=== PATIENT | female | born 1940 | race Caucasian/White ===

== ENCOUNTER 2017-05-23 09:19 | Inpatient (IN) ==
[2017-05-23] MEDS ORDERED: ACETAMINOPHEN 325 MG TABLET PO PRN (09:23)
[2017-05-23 10:23] LABS: Basophils % 0.2 % (0.0-0.8); Eosinophils % 0.2 % (0.00-10.9); Hematocrit 41.5 VOL% (35.7-47.0); Hemoglobin 13.9 GM/DL (12.0-16.0); Immature Granulocytes % 0.6 %; Lymphocytes # 1.4 10*3/uL (1.4-4.0); Lymphocytes % 8.9 % (21.3-54.2); Mean Corpuscular HGB Conc 33.5 GM/DL (32-36); Mean Corpuscular Hemoglobin 32 PG (27-34); Mean Corpuscular Volume 94.3 FL (87-102); Mean Platelet Volume 9.6 FL (9.6-12.0); Monocytes # 0.9 10*3/uL (0.11-0.8); Monocytes % 5.8 % (1.7-12.7); Neutrophils # 13.6 10*3/uL (1.4-7.4); Neutrophils % 84.3 % (38.7-73.9); Platelet Count 380 T/CUMM (130-400); Red Cell Distribution Width 12.6 % (9.3-17.3); White Blood Count 16.2 T/CUMM (4-12)
--- NOTE | 2017-05-23 10:25 | EKG Report ---
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
[2017-05-23 10:58] LABS: Risk Ratio 2.34; VLDL CHOLESTEROL 15.8 MG/DL
[2017-05-23 11:02] LABS: Albumin 3.4 G/DL (3.4-5.0); Bilirubin,Total 0.5 MG/DL (0.2-1.0); Calcium 8.7 MG/DL (8.5-10.1); Potassium 4.1 MMOL/L (3.5-5.1); Total Protein 6.6 G/DL (6.4-8.3)
[2017-05-23] MEDS: ALBUTEROL/IPRATROPIUM 3 ML NEB RESP TX SCH ×3 (11:29→19:17)
[2017-05-23] MEDS ORDERED: IPRATROPIUM/ALBUTEROL INHALER INH SCH (13:00)
--- NOTE | 2017-05-23 13:18 | Gastrointestinal Consult Note ---
Assessment and Plan (1) Weight loss Status: Acute Assessment and plan: 05/23-10 pound weight loss over the last year with decreased appetite. Prior endoscopy as below however unable to locate records at this time. No associated complaints other than sporadic episodes of nausea and vomiting. Consider EGD tomorrow to further evaluate. Plan and addendum to follow by Dr Everett. Current Visit: Yes History of Present Illness Chief complaint: Weight loss History of present illness: Ms. Cassidy is a 76 year old female who was admitted to the hospital with weight loss. Pt is a fairly good historian however unable to access prior facility database for historical information. Pt was admitted to the hospital today after being seen in clinic by Dr Granda for weight loss. Pt states that over the last year she began losing weight. She states that approximately a year ago , she began to have a decrease in her appetite. She states that she cannot recall any events that occurred prior to this however it was gradual decrease. She states that she has lost approximately 10 pounds over this period of time. She does recall having some sporadic episodes of nausea and vomiting but states they occur randomly and no precipitating factors that she can recall. She has had no complaints of abdominal pain. She has no complaints of fever, chills or night sweats. She states that she has had EGD fairly recently with esophageal stricture and dilation. Her last colonscope was in the last 5 years per patient with no acute findings. Denies a family history of colon cancer. Denies any melena or hematochezia. She has been placed on Megace in the recent past with no results from this. She also has chronic pain issues and is followed by Dr More for this. She has no complaints of dysphagia, GERD or dyspepsia. She has had no changes in her bowel pattern other than some constipation from not eating well. She does have a history of COPD as well. Home Medications Medication Instructions Recorded Confirmed Type Albuterol Sulfate [Proair HFA] 2 puff INH Q4H PRN 01/13/17 05/23/17 History Albuterol/Ipratropium Neb [Duoneb] 3 ml RESP TX QID 01/13/17 05/23/17 History Budesonide/Formoterol 160-4.5 2 puff INH BID 01/13/17 05/23/17 History [Symbicort 160-4.5] HYDROcodone/ACETAMIN 5-325 [[place] 1 tablet PO BID PRN 01/13/17 05/23/17 History 5-325] Ipratropium/Albuterol Inhaler 1 puff INH QID 01/13/17 05/23/17 History [Combivent Respimat Inhaler] Megestrol Liquid [Megace Liquid] 5 ml PO BID 01/13/17 05/23/17 History Metoprolol Tartrate 12.5 mg PO BID 01/13/17 05/23/17 History traMADol TAB [Ultram] 100 mg PO BID 01/13/17 05/23/17 History predniSONE TAB [PredniSONE] 5 mg PO DAILY 05/07/17 05/23/17 History Allergies Allergy/AdvReac Type Severity Reaction Status Date / Time aspirin Allergy Severe Swelling Verified 05/07/17 09:00 of Lip/Tongue/Throat morphine AdvReac Nausea Verified 05/07/17 09:00 Medical,Surgical,& Family Hx - Medical History Respiratory: History of: COPD Musculoskeletal: History of: Back/Neck Problems (back pain), Musculoskeletal Problems (arthritis) - Surgical History Neurologic Surgeries: Patient denies: Neurologic Surgery HEENT Surgeries: Surgical HX of: Tonsilectomy & Adenoidectomy Patient denies: Eye Surgery Abdominal Surgeries: Surgical HX of: Appendectomy - Family History Family History: Reports;: Family Cancer (mom sister), Family Heart Disease (dad brother) Denies;: Family Diabetes, Family Hematology, Family Hypertension, Family Psychiatric Problems, Family Stroke, Additional Family History - Social History Smoking Status: Smoker, status unknown Frequency of Alcohol Use: None Type of Drug Use: None 12 point system: reviewed and no additional remarkable complaints except as stated - Constitutional Constitutional: Present: as per HPI, weight loss - EENT Eyes: Present: as per HPI Ears: Present: as per HPI Nose, mouth and throat: Present: as per HPI - Cardiovascular Cardiovascular: Present: as per HPI - Respiratory Respiratory: Present: as per HPI - Gastrointestinal Gastrointestinal: Present: as per HPI - Genitourinary Genitourinary: Present: as per HPI - Musculoskeletal Musculoskeletal: Present: as per HPI - Neurological Neurological: Present: as per HPI - Psychiatric Psychiatric: Present: as per HPI - Endocrine Endocrine: Present: as per HPI - Hematologic/Lymphatic Hematologic/Lymphatic: Present: as per HPI Exam - Constitutional Vitals: Period Temp Pulse Resp BP Sys/Flores Pulse Ox Last 24 Hr 98.3 F-98.3 F 106-106 30-30 134-134/81-81 95-95 General appearance: no acute distress, under weight - Head Head exam: Present: normal inspection, normocephalic - Eye Eye exam: Present: other (lids and conjuncitva unremarkable). Absent: scleral icterus - ENT ENT exam: Present: normal exam, normal oropharynx - Neck Neck exam: Present: normal inspection - Respiratory Respiratory exam: Present: clear to auscultation bilaterally. Absent: rales, rhonchi, wheezes - Cardiovascular Cardiovascular exam: Present: regular rate and rhythm. Absent: diastolic murmur , JVD, systolic murmur - GI/Abdominal GI/Abdominal exam: Present: normal bowel sounds, soft. Absent: ascites, distended, mass, organomegaly, tenderness - Extremities Exam Extremities exam: Present: normal inspection, full ROM - Back Exam Back exam: Present: normal inspection - Neurological Exam Neurological exam: Present: alert, oriented X3 - Psychiatric Psychiatric exam: Present: normal affect, normal mood - Skin Skin exam: Present: normal color, warm, dry Results - Labs CBC & BMP: 05/23/17 10:09 05/23/17 10:09 Lab Results: I have reviewed the past 24 hour labs
--- NOTE | 2017-05-23 14:03 | XRay Report ---
History: Shortness of breath Date: 05/23/2017 Study: Chest x-ray PA and lateral Comparison exam: February 11, 2017 The cardiac silhouette is not enlarged. There is no mediastinal mass. There is moderate aortic arch calcification. The pulmonary vasculature is not engorged. The lungs are slightly hyperexpanded. There is no pleural effusion. There are some scattered emphysematous changes, more so in the upper lung zones. There is no acute infiltrate. There is a recent moderate compression fracture T11 as noted on the lumbar spine MRI from May 19, 2017. Impression: No acute infiltrate. The lungs are slightly hyperexpanded as can be seen with COPD. Moderate T11 compression as noted on recent MRI PROCEDURE INTERPRETED AT [facility] DEPARTMENT OF RADIOLOGY Final Report Signed by: Dr. Fela Everett
[2017-05-23] MEDS: DEXTROSE 5% NACL 0.9% 1,000 ML IV SCH ×2 (15:07→21:23)
[2017-05-23] MEDS: CYCLOBENZAPRINE 10 MG TABLET PO SCH ×2 (15:08→21:12)
--- NOTE | 2017-05-23 15:14 | Ultrasound Report ---
Exam: US abdomen Date:05/23/2017 9:27 AM Comparison: None Indication: Weight loss. Abnormal MRI Real-time ultrasound images are captured and archived. There is moderate atherosclerotic irregularity of the abdominal aorta without focal aneurysm. IVC is generally patent. The liver is normal in size and is otherwise normal. There is a small amount of hypoechoic material in the dependent portion of the lumen of the gallbladder suggesting some minimal sludge. There is no gallbladder wall thickening. There is no classic shadowing gallstone. There is a negative sonographic Cochran sign. The visualized pancreas is normal. There is no abnormal biliary dilatation. The common bile duct measurement of 2.1 mm is submitted. The pancreas appears normal. The kidneys are isoechoic diffusely to the hepatic parenchyma, suggesting some medical renal parenchymal disease. There is no focal renal mass. There is no hydronephrosis. The spleen appears normal. There is large amount of fluid/ingested material within the stomach. Impression: Medical renal parenchymal disease. Large amount of fluid/ingested material within the stomach. Otherwise negative exam ORGAN MEASUREMENTS Liver Length: 12.8 cm Gallbladder Wall Thickness: 2.4 mm CBD; 2.1 mm Spleen: Length 6.4 cm Width 2.9 cm height 3.3 cm Right kidney: Length: 8.6 cm Left kidney: Length: 9.2 cm The Ultrasound images were captured and stored. PROCEDURE INTERPRETED AT [facility] DEPARTMENT OF RADIOLOGY Final Report Signed by: Dr. Fela Everett
[2017-05-23 15:58] LABS: Apearance,Urine Slightly Hazy (Clear); Bacteria,Urine Occasional /HPF (Few); Bilirubin,Urine Negative (Negative); Blood, Urine Small mg/dL (Negative); Glucose,Urine (UA) Negative (Negative); Ketones,Urine Negative (Negative); Mucus,Urine Occasional /LPF (Occasional); Nitrite,Urine Negative (Negative); Protein,Urine 100 MG/DL; RBC,Urine 2 /HPF (0-4); Squamous Epithelial Cell,Urine Occasional /HPF (0-10); Urine Color Yellow (Yellow); Urine Specific Gravity 1.019 (1.001-1.035); Urine Urobilinogen < 2.0 EU/DL (0.2-1.0); WBC,Urine 16 /HPF (0-6)
--- NOTE | 2017-05-23 16:59 | Family Practice History&Phys ---
Assessment and Plan (1) Anorexia Status: Acute Assessment and plan: 05/23/2017: Patient's had a recent CT of the abdomen that was unrevealing. Abdominal ultrasound will be ordered today and GI will be consulted. Current Visit: Yes (2) Weight loss Status: Acute Assessment and plan: 05/23/2017: Patient has lost 20 pounds in the last 3 months. An obvious cause for this degree of weight loss is being pursued Current Visit: Yes History of Present Illness Chief complaint: Weight loss History of present illness: Ms. Cassidy is a 76 year old female Patient is a 76-year-old white female presented to the office today with complaint of persistent loss of appetite and weight loss. Her weight is down to 75 pounds today. She has lost approximately 20 pounds in the last 3 months. She has not had any fever or chills and really has no abdominal pain. She is tormented by back pain and in fact has a compression abnormality of T11 that is going to require kyphoplasty. She denies any dyspepsia or dysphagia. She has not had any changes in her bowel habits. Her states she is actually eating a little bit better over the last 2 days but this is certainly not reflected in her body weight. She denies any blood in her stool and she has not had any nausea, vomiting or melena. She does have early satiety. Patient had MRI of her spine because of her back pain and there was some questionable upper abdominal masses bilaterally. A CT scan was performed of the abdomen and there were no suspicious masses seen. Home Medications Medication Instructions Recorded Confirmed Type Albuterol Sulfate [Proair HFA] 2 puff INH Q4H PRN 01/13/17 05/23/17 History Albuterol/Ipratropium Neb [Duoneb] 3 ml RESP TX QID 01/13/17 05/23/17 History Budesonide/Formoterol 160-4.5 2 puff INH BID 01/13/17 05/23/17 History [Symbicort 160-4.5] HYDROcodone/ACETAMIN 5-325 [[place] 1 tablet PO BID PRN 01/13/17 05/23/17 History 5-325] Ipratropium/Albuterol Inhaler 1 puff INH QID 01/13/17 05/23/17 History [Combivent Respimat Inhaler] Megestrol Liquid [Megace Liquid] 5 ml PO BID 01/13/17 05/23/17 History Metoprolol Tartrate 12.5 mg PO BID 01/13/17 05/23/17 History traMADol TAB [Ultram] 100 mg PO BID 01/13/17 05/23/17 History predniSONE TAB [PredniSONE] 5 mg PO DAILY 05/07/17 05/23/17 History Allergies Allergy/AdvReac Type Severity Reaction Status Date / Time aspirin Allergy Severe Swelling Verified 05/07/17 09:00 of Lip/Tongue/Throat morphine AdvReac Nausea Verified 05/07/17 09:00 - Constitutional Constitutional: Present: anorexia, fatigue, weakness, weight loss. Absent: lethargy, night sweats - EENT Eyes: Absent: blurry vision, loss of vision Ears: Absent: decreased hearing, ear pain Nose, mouth and throat: Absent: nasal congestion, sinus pressure, sore throat - Cardiovascular Cardiovascular: Present: dyspnea, dyspnea on exertion. Absent: chest pain at rest, chest pain with activity, diaphoresis, orthopnea, palpitations, PND - Respiratory Respiratory: Present: cough, wheezing. Absent: dyspnea, dyspnea on exertion - Gastrointestinal Gastrointestinal: Absent: abdominal pain, bloating, diarrhea, dyspepsia, dysphagia, hematemesis, hematochezia, melena, nausea, vomiting - Genitourinary Genitourinary: Absent: dysuria, flank pain, urinary frequency, urinary hesitancy - Musculoskeletal Musculoskeletal: Present: as per HPI, back pain. Absent: joint swelling - Neurological Neurological: Absent: confusion, focal weakness, numbness, paresthesias - Psychiatric Psychiatric: Absent: anxiety, depression - Endocrine Endocrine: Present: cold intolerance, fatigue. Absent: polydipsia, polyphagia - Hematologic/Lymphatic Hematologic/Lymphatic: Absent: easy bleeding, easy bruising Medical,Surgical,& Family Hx - Medical History Respiratory: History of: COPD Musculoskeletal: History of: Back/Neck Problems (back pain), Musculoskeletal Problems (arthritis) - Surgical History Neurologic Surgeries: Patient denies: Neurologic Surgery HEENT Surgeries: Surgical HX of: Tonsilectomy & Adenoidectomy Patient denies: Eye Surgery Abdominal Surgeries: Surgical HX of: Appendectomy - Family History Family History: Reports;: Family Cancer (mom sister), Family Heart Disease (dad brother) Denies;: Family Diabetes, Family Hematology, Family Hypertension, Family Psychiatric Problems, Family Stroke, Additional Family History - Social History Smoking Status: Former smoker Frequency of Alcohol Use: None Type of Drug Use: None Exam - Constitutional Vitals: Period Temp Pulse Resp BP Sys/Flores Pulse Ox Last 24 Hr 98.3 F-98.5 F 99-108 16-30 134-138/63-81 95-99 Exam: General: Objective patient is a well-developed extremely thin white female in no acute distress. Patient is certainly cachectic. She is awake and alert and able to give a good history. HEENT: Pupils equal and reactive to light. Patent nares and airway. Mucous membranes are moist. Neck: No meningismus, adenopathy, thyromegaly. There are no auscultated carotid bruits. Cardiovascular: Regular rhythm. No murmurs or gallops Chest: Clear to auscultation without rales rhonchi wheezes. Abdomen: Soft nontender to palpation No masses, rebound, guarding or tenderness. There is no palpable hepatosplenomegaly or masses. Neuro: Cranial nerves intact and DTRs and strength symmetric in all extremities. Dermatologic: No evidence of abnormal lesions or masses. Musculoskeletal: There is no joint swelling or tenderness or deformity. Extremities: There is no calf swelling or tenderness. Results - Labs CBC & BMP: 05/23/17 10:09 05/23/17 10:09 Lab Results: I have reviewed the past 24 hour labs - Diagnostic Findings Procedure: Chest x-ray: report reviewed by me (No acute abnormality is seen.), Ultrasound: report reviewed by me (Patient had a bit of sludging in the gallbladder but no other abnormality.)
[2017-05-23] MEDS: MEGESTROL 400 MG/10 ML UDCUP PO SCH (21:11)
[2017-05-23] MEDS: ENOXAPARIN 40 MG/0.4 ML SYRINGE SUBCUT SCH (21:11)
[2017-05-23] MEDS: DOCUSATE SODIUM 100 MG CAPSULE PO SCH (21:12)
[2017-05-23] MEDS: BUDESONIDE/FORMOTEROL 160-4.5 INHALER 6 GM INH SCH (21:16)
[2017-05-24] MEDS: DEXTROSE 5% NACL 0.9% 1,000 ML IV SCH (05:31)
[2017-05-24] MEDS: ALBUTEROL/IPRATROPIUM 3 ML NEB RESP TX SCH ×4 (06:53→19:15)
--- NOTE | 2017-05-24 07:02 | Family Practice Progress Note ---
Family Practice - PN: Subj Interval history: Patient states she is feeling some better this morning and when I came by yesterday evening she had almost completely consumed what appeared to be a chicken sandwich. She is scheduled for EGD this morning. Exam (Progress Note) - Constitutional Vitals: Period Temp Pulse Resp BP Sys/Flores Pulse Ox Last 24 Hr 97.5 F-98.5 F 85-108 16-30 118-138/61-81 95-100 Exam: Objective well-developed white female no acute distress. She is awake and alert. She states she had a good night sleep. Cardiovascular: Heart rate is regular without murmurs or gallops. Respiratory: Patient has scant expiratory wheeze. Abdomen: Abdomen soft and nontender to palpation. Results - Labs CBC & BMP: 05/23/17 10:09 05/23/17 10:09 Lab Results: I have reviewed the past 24 hour labs Assessment and Plan (1) Anorexia Status: Acute Assessment and plan: 05/23/2017: Patient's had a recent CT of the abdomen that was unrevealing. Abdominal ultrasound will be ordered today and GI will be consulted. 05/24/2017: Patient scheduled for EGD this morning. Her appetite was certainly better last evening. I am going to get a dietary consult for their recommendations. Current Visit: Yes (2) Weight loss Status: Acute Assessment and plan: 05/23/2017: Patient has lost 20 pounds in the last 3 months. An obvious cause for this degree of weight loss is being pursued 05/24/2017: I will discuss the results of her MRI and CT abdomen with Dr. León today. Current Visit: Yes
--- NOTE | 2017-05-24 12:57 | History and Physical Update ---
History and Physical Update - History and Physical H&P was reviewed, the patient examined and there: are no changes in the patients condition since last H&P was completed. - Physical Exam Mental Status: alert and oriented Heart: regular rate and rhythm Lung: clear to auscultation Abdomen: within normal limits Vitals: within normal limits
--- NOTE | 2017-05-24 13:09 | Operative Note ---
Date of procedure: 05/24/17 Pre-op diagnosis: Weight loss, early satiety Procedure: Procedure: Esophagogastroduodenoscopy with savory dilation of esophagus over wire Brief clinical abstract: 76-year-old female has had recent 20 pound involuntary weight loss. She complains of early satiety symptoms and intermittent nausea/ vomiting. Patient denies difficulty swallowing. No gross GI bleeding has been noted. Indication for procedure: Early satiety, weight loss Endoscopic findings:[After informed consent was obtained, the patient was placed in the left lateral decubitus position. The gastroscope was inserted in the upper esophagus under direct vision with no resistance encountered. Esophageal mucosa appeared normal down to the distal esophagus. There were 3 longitudinal ulcers 1-2 cm in length extending to the squamocolumnar junction consistent with reflux etiology. At the squamocolumnar junction, there was a moderately obstructive fibrous appearing stricture consistent with reflux etiology. The 9.5 mm diameter gastroscope passed beyond this with slight resistance into a small hiatal hernia. The endoscope was advanced in the stomach which was carefully examined including retroflexed view of the cardia and fundus. A moderate amount of retained fluid was noted in the stomach which was suctioned. No mucosal abnormalities were seen in the stomach including retroflexed view. Patient had a widely patent pylorus suggesting possible previous pyloroplasty. Duodenal bulb as well as second and third portion of the duodenum appeared normal. The endoscope was withdrawn back into the stomach. Spring-tipped guidewire was advanced into the antrum under endoscopic visualization. Savory dilators sizes 14 mm and then 16 mm were advanced over the wire beyond the level of the GE junction with mild resistance encountered. No blood was noted on the dilator afterwards and she had no chest pain. She appeared to tolerate the procedure well. Impression: #1 LA classification grade C ulcerative esophagitis with associated stricture secondary to GERD-status post bougie dilation #2 hiatal hernia #3 moderate amount of retained fluid in stomach-significance unclear Recommendations: PPI therapy and follow symptomatically after above. Follow-up stool samples for occult blood and consider colonoscopy if positive. [place] [facility] [place] / Physician: Kyrie Everett Estimated blood loss: none Specimens: none sent Condition: stable Disposition: post procedure unit Results - Labs CBC & BMP: 05/23/17 10:09 05/23/17 10:09 Discharge Plan - Discharge Medications No Action Metoprolol Tartrate 12.5 mg PO BID Albuterol/Ipratropium Neb [Duoneb] 3 ml RESP TX QID Albuterol Sulfate [Proair HFA] 2 puff INH Q4H PRN PRN Reason: Shortness Of Breath/Wheezing Ipratropium/Albuterol Inhaler [Combivent Respimat Inhaler] 1 puff INH QID Megestrol Liquid [Megace Liquid] 5 ml PO BID predniSONE TAB [PredniSONE] 5 mg PO DAILY traMADol TAB [Ultram] 100 mg PO BID HYDROcodone/ACETAMIN 5-325 [[place] 5-325] 1 tablet PO BID PRN PRN Reason: Pain Budesonide/Formoterol 160-4.5 [Symbicort 160-4.5] 2 puff INH BID - Follow Up or Referral - Forms/Instructions
--- NOTE | 2017-05-24 13:14 | Anesthesia Post-Op ---
Anesthesia Post OP - Post Ansesthetic Evaluation Patient seen in post op: Yes Resp: within normal limits CV: within normal limits Mental: within normal limits Temp: within normal limits [id number]: within normal limits Nausea and Vomiting: within normal limits Pain: within normal limits
[2017-05-24] MEDS: DOCUSATE SODIUM 100 MG CAPSULE PO SCH ×2 (14:13→20:25)
[2017-05-24] MEDS: PANTOPRAZOLE 40 MG TABLET PO SCH (14:14)
[2017-05-24] MEDS: CYCLOBENZAPRINE 10 MG TABLET PO SCH ×3 (14:14→20:25)
[2017-05-24] MEDS: predniSONE 5 MG TABLET PO SCH (14:14)
[2017-05-24] MEDS: BUDESONIDE/FORMOTEROL 160-4.5 INHALER 6 GM INH SCH ×2 (14:15→20:26)
[2017-05-24] MEDS: MEGESTROL 400 MG/10 ML UDCUP PO SCH ×2 (14:15→20:25)
[2017-05-24] MEDS ORDERED: MAGNESIUM HYDROXIDE SUSP 30 ML UDCUP PO ONE (18:07)
[2017-05-24] MEDS: ENOXAPARIN 40 MG/0.4 ML SYRINGE SUBCUT SCH (20:26)
--- NOTE | 2017-05-25 07:13 | Family Practice Progress Note ---
Family Practice - PN: Subj Interval history: Patient states she is feeling some better this morning and did eat a fairly good supper last night. She denies any abdominal pain this morning. EGD showed esophagitis and stricture. Her urine culture and blood cultures have all been negative. I do have her on IV antibiotics at present. I am going to ask physical therapy to come see her today and hopefully increase her activity a bit. Her weight is up 2.7 kg since admission. Exam (Progress Note) - Constitutional Vitals: Period Temp Pulse Resp BP Sys/Flores Pulse Ox Last 24 Hr 97.6 F-98.6 F 72-140 18-28 128-144/57-80 96-100 Exam: Objective well-developed white female no acute distress. She is awake and alert. She states she had a good night sleep and ate a good supper last night.. Cardiovascular: Heart rate is regular without murmurs or gallops. Respiratory: Patient has scant expiratory wheeze. Abdomen: Abdomen soft and nontender to palpation. Results - Labs CBC & BMP: 05/23/17 10:09 05/23/17 10:09 Lab Results: I have reviewed the past 24 hour labs Assessment and Plan (1) Anorexia Status: Acute Assessment and plan: 05/23/2017: Patient's had a recent CT of the abdomen that was unrevealing. Abdominal ultrasound will be ordered today and GI will be consulted. 05/24/2017: Patient scheduled for EGD this morning. Her appetite was certainly better last evening. I am going to get a dietary consult for their recommendations. 05/25/2017: Patient was found to have significant esophagitis and esophageal stricture. She really had little in the way of dysphagia. Current Visit: Yes (2) Weight loss Status: Acute Assessment and plan: 05/23/2017: Patient has lost 20 pounds in the last 3 months. An obvious cause for this degree of weight loss is being pursued 05/24/2017: I will discuss the results of her MRI and CT abdomen with Dr. León today. 05/25/2017: Patient has gained 3.7 kg since admission. Current Visit: Yes
[2017-05-25] MEDS: ALBUTEROL/IPRATROPIUM 3 ML NEB RESP TX SCH ×4 (07:18→19:05)
[2017-05-25] MEDS: DOCUSATE SODIUM 100 MG CAPSULE PO SCH ×2 (09:06→20:34)
[2017-05-25] MEDS: CYCLOBENZAPRINE 10 MG TABLET PO SCH ×3 (09:06→20:32)
[2017-05-25] MEDS: MEGESTROL 400 MG/10 ML UDCUP PO SCH ×2 (09:07→20:31)
[2017-05-25] MEDS: predniSONE 5 MG TABLET PO SCH (09:07)
[2017-05-25] MEDS: PANTOPRAZOLE 40 MG TABLET PO SCH (09:08)
--- NOTE | 2017-05-25 09:36 | Physician Query Form ---
CLICK EDIT DOCUMENT TO SELECT QUERY ANSWER --> OK --> SIGN Elvia Johnson RN, CCDS Certified Clinical Machine Ironer W) [phone] (f) [phone] [email or web address] PROVIDERS: Make your selection(s) from the choices in EACH section by typing an "x" and enter comments in the comment section. Please use your independent medical judgment in providing your response. This request does not imply that any particular answer is desired or expected. 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 loss, BMI 12.8#, Height of 63", Wt. of 72 pounds, Per Dietary Notes: "Loss of body Fat", "Loss of Muscle Mass", and "Chocolate Enlive with lunch and dinner". Additionally an EGD was done that was showing Ulcerative Esophagitis Based on the above, which following choice most accurately represents the patient's nutritional status? ( ) Malnutrition ( ) mild ( ) moderate ( ) severe ( ) Protein calorie malnutrition ( ) mild ( ) moderate ( ) severe ( ) Emaciation due to malnutrition ( ) Nutritional marasmus ( ) Cachexia ( ) Underweight ( ) No nutritional deficiency ( x) Other, please specify:Please refer to Dr Granda regarding this ( ) Clinically unable to determine Mild Malnutrition (BMI < 18.5, % Normal Body Weight 85-95%) Moderate Malnutrition (BMI < 17, % Normal Body Weight 75-85%) Severe Malnutrition (BMI < 16, % Normal Body Weight < 75%) Source: Hina COMMENTS: PLEASE ALSO DOCUMENT RESPONSE IN PROGRESS NOTES AND/OR DISCHARGE SUMMARY Use of terms such as suspected, likely, or probable (associated with a specific diagnosis that is being evaluated, monitored, or treated as if it exists) are acceptable and can be restated in the discharge summary if not ruled out. MTDD
[2017-05-25] MEDS: BUDESONIDE/FORMOTEROL 160-4.5 INHALER 6 GM INH SCH (10:20)
--- NOTE | 2017-05-25 10:30 | Gastrointestinal Progress Note ---
Assessment and Plan (1) Weight loss Status: Acute Assessment and plan: 05/25-EGD findings noted as below. Tolerating diet with no complaints. Stools for occult blood are pending at present time. Plan an addendum to followed by Dr. Everett 05/23-10 pound weight loss over the last year with decreased appetite. Prior endoscopy as below however unable to locate records at this time. No associated complaints other than sporadic episodes of nausea and vomiting. Consider EGD tomorrow to further evaluate. Plan and addendum to follow by Dr Everett. Current Visit: Yes Gastroenterology - PN: Subj Interval history: CC: Weight loss Patient is seen awake alert sitting up in bed with family bedside. States that she rested well last night and denies any abdominal pain. She had an EGD on yesterday which showed ulcerative esophagitis as well as esophageal stricture with post dilation. Also noted to have a hiatal hernia as well as moderate retained fluid in her stomach. She states that she is eating a little bit better today denies any dysphagia at this time. She states that her appetite is improving as well. She has stool for occult blood ordered however this has not been obtained as of yet. Her bowels did move this morning she denies any overt bleeding. Abdomen soft, nontender. She has had no repeat labs since admission. ROS: Denies shortness breath or chest pain Exam (Progress Note) - Constitutional Vitals: Period Temp Pulse Resp BP Sys/Flores Pulse Ox Last 24 Hr 97.6 F-98.6 F 72-109 18-28 128-144/57-80 96-100 - Other Additional findings: General appearance: no acute distress, under weight - Head Head exam: Present: normal inspection, normocephalic - Eye Eye exam: Present: other (lids and conjuncitva unremarkable). Absent: scleral icterus - ENT ENT exam: Present: normal exam, normal oropharynx - Neck Neck exam: Present: normal inspection - Respiratory Respiratory exam: Present: clear to auscultation bilaterally. Absent: rales, rhonchi, wheezes - Cardiovascular Cardiovascular exam: Present: regular rate and rhythm. Absent: diastolic murmur , JVD, systolic murmur - GI/Abdominal GI/Abdominal exam: Present: normal bowel sounds, soft. Absent: ascites, distended, mass, organomegaly, tenderness - Extremities Exam Extremities exam: Present: normal inspection, full ROM - Back Exam Back exam: Present: normal inspection - Neurological Exam Neurological exam: Present: alert, oriented X3 - Psychiatric Psychiatric exam: Present: normal affect, normal mood - Skin Skin exam: Present: normal color, warm, dry Results - Labs CBC & BMP: 05/23/17 10:09 05/23/17 10:09 Lab Results: I have reviewed the past 24 hour labs
[2017-05-25] MEDS: DEXTROSE 5% NACL 0.9% 1,000 ML IV SCH ×3 (10:59→14:11)
[2017-05-25] MEDS: ONDANSETRON 4 MG/2 ML VIAL IV PRN (16:45)
[2017-05-25] MEDS ORDERED: MAGNESIUM HYDROXIDE SUSP 30 ML UDCUP PO PRN (16:52)
[2017-05-25] MEDS: ENOXAPARIN 40 MG/0.4 ML SYRINGE SUBCUT SCH (20:35)
[2017-05-26] MEDS: ALBUTEROL/IPRATROPIUM 3 ML NEB RESP TX SCH ×4 (07:03→19:23)
--- NOTE | 2017-05-26 07:16 | Physician Query Form ---
CLICK EDIT DOCUMENT TO SELECT QUERY ANSWER --> OK --> SIGN Elvia Johnson RN, CCDS Certified Clinical Contact Printer Dry Film W) [phone] (f) [phone] [email or web address] PROVIDERS: Make your selection(s) from the choices in EACH section by typing an "x" and enter comments in the comment section. Please use your independent medical judgment in providing your response. This request does not imply that any particular answer is desired or expected. CLINICAL INDICATORS: (Providers should not edit this section) Height: 63" Weight: 72 Pounds Game Moderator BMI: 12.8# Nutritional supplements: Raw Stock Drier Tender notes: Other clinical notes: The medical record indicates that the patient was admitted with anorexia, Wt. loss, BMI 12.8#, Height of 63", Wt. of 72 pounds, Per Dietary Notes: "Loss of body Fat", "Loss of Muscle Mass", and "Chocolate Enlive with lunch and dinner". Additionally an EGD was done that was showing Ulcerative Esophagitis Based on the above, which following choice most accurately represents the patient's nutritional status? ( x) Malnutrition ( ) mild ( ) moderate ( x) severe ( ) Protein calorie malnutrition ( ) mild ( ) moderate ( ) severe ( ) Emaciation due to malnutrition ( ) Nutritional marasmus ( ) Cachexia (x ) Underweight ( ) No nutritional deficiency ( ) Other, please specify: ( ) Clinically unable to determine Mild Malnutrition (BMI < 18.5, % Normal Body Weight 85-95%) Moderate Malnutrition (BMI < 17, % Normal Body Weight 75-85%) Severe Malnutrition (BMI < 16, % Normal Body Weight < 75%) Source: Hina COMMENTS: PLEASE ALSO DOCUMENT RESPONSE IN PROGRESS NOTES AND/OR DISCHARGE SUMMARY Use of terms such as suspected, likely, or probable (associated with a specific diagnosis that is being evaluated, monitored, or treated as if it exists) are acceptable and can be restated in the discharge summary if not ruled out. MTDD
[2017-05-26] MEDS: BUDESONIDE/FORMOTEROL 160-4.5 INHALER 6 GM INH SCH ×3 (07:46→21:07)
[2017-05-26] MEDS: DEXTROSE 5% NACL 0.9% 1,000 ML IV SCH ×2 (08:25→10:27)
[2017-05-26] MEDS: MEGESTROL 400 MG/10 ML UDCUP PO SCH ×2 (08:27→21:04)
[2017-05-26] MEDS: DOCUSATE SODIUM 100 MG CAPSULE PO SCH ×2 (08:27→21:05)
[2017-05-26] MEDS: CYCLOBENZAPRINE 10 MG TABLET PO SCH ×3 (08:27→21:07)
[2017-05-26] MEDS: PANTOPRAZOLE 40 MG TABLET PO SCH (08:28)
[2017-05-26] MEDS: predniSONE 5 MG TABLET PO SCH (08:28)
[2017-05-26] MEDS ORDERED: SIMETHICONE CHEW 125 MG TABLET PO PRN (09:45)
--- NOTE | 2017-05-26 09:47 | Gastrointestinal Progress Note ---
Assessment and Plan (1) Weight loss Status: Acute Assessment and plan: 05/26-stools are negative for occult blood. Appetite down today due to abdominal distention. Continue MiraLAX, simethicone as needed. Plan an addendum to followed by Dr. Everett. 05/25-EGD findings noted as below. Tolerating diet with no complaints. Stools for occult blood are pending at present time. Plan an addendum to followed by Dr. Everett 05/23-10 pound weight loss over the last year with decreased appetite. Prior endoscopy as below however unable to locate records at this time. No associated complaints other than sporadic episodes of nausea and vomiting. Consider EGD tomorrow to further evaluate. Plan and addendum to follow by Dr Everett. Current Visit: Yes Gastroenterology - PN: Subj Interval history: CC: Weight loss Patient is seen awake and alert with family at bedside. States she is feeling about the same at this time. She is having continued abdominal distention without pain. She states that she had a small bowel movement on yesterday but nothing since that time. She has been given milk of magnesia without results. States that she does not have much of an appetite due to this and feels like she needs to have a good bowel movement. Stools are negative for occult blood. Abdomen is distended, tympanic without tenderness. She has been eating fairly well until yesterday. ROS: Denies shortness of breath or chest pain Exam (Progress Note) - Constitutional Vitals: Period Temp Pulse Resp BP Sys/Flores Pulse Ox Last 24 Hr 97.7 F-99.2 F 78-121 18-22 132-160/60-90 89-100 - Other Additional findings: General appearance: no acute distress, under weight - Head Head exam: Present: normal inspection, normocephalic - Eye Eye exam: Present: other (lids and conjuncitva unremarkable). Absent: scleral icterus - ENT ENT exam: Present: normal exam, normal oropharynx - Neck Neck exam: Present: normal inspection - Respiratory Respiratory exam: Present: clear to auscultation bilaterally. Absent: rales, rhonchi, wheezes - Cardiovascular Cardiovascular exam: Present: regular rate and rhythm. Absent: diastolic murmur , JVD, systolic murmur - GI/Abdominal GI/Abdominal exam: Present: normal bowel sounds, soft. Absent: ascites, distended, mass, organomegaly, tenderness - Extremities Exam Extremities exam: Present: normal inspection, full ROM - Back Exam Back exam: Present: normal inspection - Neurological Exam Neurological exam: Present: alert, oriented X3 - Psychiatric Psychiatric exam: Present: normal affect, normal mood - Skin Skin exam: Present: normal color, warm, dry Results - Labs CBC & BMP: 05/23/17 10:09 05/23/17 10:09 Lab Results: I have reviewed the past 24 hour labs
--- NOTE | 2017-05-26 14:33 | Internal Med Progress Note ---
Assessment and Plan (1) COPD (chronic obstructive pulmonary disease) Status: Chronic Current Visit: Yes Qualifiers: COPD type: COPD with acute exacerbation Qualified Code(s): J44.1 - Chronic obstructive pulmonary disease with (acute) exacerbation (2) History of vertebral compression fracture Status: Acute Current Visit: Yes (3) Anorexia Status: Chronic Current Visit: Yes (4) Weight loss Status: Chronic Current Visit: Yes (5) Hypertension Status: Acute Current Visit: Yes Qualifiers: Hypertension type: other secondary hypertension Qualified Code(s): I15.8 - Other secondary hypertension (6) Abdominal bloating Status: Acute Current Visit: Yes Internal Medicine - PN: Subj Interval history: This is a 76 year old female patient of Dr. Kev Granda with history of weight loss, COPD, OA, recent T11 compression fracture awaiting kyphoplasty, history of acid reflux and esophageal ulcerations/esophagitis, who presented to Dr. Reyes's clinic with profound weight loss and debility, COPD exacerbation. Family at bedside believes the weight loss is from poor appetite over an extended period, coupled with the patient's particular palate. Also, she has advanced COPD. She is complaining of abdominal bloating, denies abdominal pain. She denies appreciable constipation, but laxative ordered for tonight. She is tachycardic and will add Metoprolol tartrate. Exam (Progress Note) - Constitutional Vitals: Period Temp Pulse Resp BP Sys/Flores Pulse Ox Last 24 Hr 98.0 F-99.2 F 85-121 18-22 132-160/60-90 89-100 General appearance: no acute distress - Head Head exam: Present: normocephalic - Eye Eye exam: Present: EOMI - Respiratory Respiratory exam: Present: clear to auscultation bilaterally. Absent: rhonchi - Cardiovascular Cardiovascular exam: Present: tachycardia (regular rhythm) - GI/Abdominal GI/Abdominal exam: Present: distended, hypoactive bowel sounds, soft - Extremities Exam Extremities exam: Absent: edema - Back Exam Back exam: Present: other (thoracic kyphosis) - Neurological Exam Neurological exam: Present: alert - Psychiatric Psychiatric exam: Present: normal mood - Skin Skin exam: Present: warm, dry Results - Labs CBC & BMP: 05/23/17 10:09 05/23/17 10:09
[2017-05-26] MEDS ORDERED: METOPROLOL TARTRATE 25 MG TABLET PO SCH (15:00)
[2017-05-26] MEDS: POLYETHYLENE GLYCOL POWDER 17 GM PACK PO SCH (18:01)
[2017-05-26] MEDS: METOPROLOL TARTRATE 25 MG TABLET PO SCH (21:05)
[2017-05-26] MEDS: ENOXAPARIN 40 MG/0.4 ML SYRINGE SUBCUT SCH (21:05)
[2017-05-26] MEDS: ONDANSETRON 4 MG/2 ML VIAL IV PRN (21:05)
[2017-05-27] MEDS: DEXTROSE 5% NACL 0.9% 1,000 ML IV SCH ×2 (02:32→06:29)
[2017-05-27 06:43] LABS: Basophils # 0.1 10*3/uL (0.0-0.2); Basophils % 0.4 % (0.0-0.8); Eosinophils # 0.2 10*3/uL (0.0-0.87); Eosinophils % 1.2 % (0.00-10.9); Hematocrit 35.2 VOL% (35.7-47.0); Hemoglobin 11.4 GM/DL (12.0-16.0); Immature Granulocytes % 0.6 %; Immature Granulocytes Absolute 0.08 #; Lymphocytes % 7.5 % (21.3-54.2); Mean Corpuscular HGB Conc 32.4 GM/DL (32-36); Mean Corpuscular Hemoglobin 31 PG (27-34); Mean Corpuscular Volume 96.7 FL (87-102); Mean Platelet Volume 9.5 FL (9.6-12.0); Monocytes # 0.6 10*3/uL (0.11-0.8); Monocytes % 4.4 % (1.7-12.7); Neutrophils # 11.8 10*3/uL (1.4-7.4); Neutrophils % 85.9 % (38.7-73.9); Platelet Count 274 T/CUMM (130-400); Red Blood Count 3.64 MC/CUMM (3.8-5.5); Red Cell Distribution Width 12.6 % (9.3-17.3); White Blood Count 13.7 T/CUMM (4-12)
--- NOTE | 2017-05-27 07:06 | Discharge Summary ---
Hospital Course - Hospital Course Hospital Course: Patient 76-year-old white female who was admitted for further evaluation of severe weight loss. Patient was down to 75 pounds. According to family she has been quite anorexic. She denied any GI symptoms to speak of except for anorexia. Patient was made my services she had previous CT the abdomen that was unremarkable. Admission laboratory studies revealed no significant finding. She was seen by Dr. Fidel Everett and underwent EGD that showed distal esophageal stricture and esophagitis. Patient is improved significantly since hospitalized and has gained 4.6 kg since admission. She is feeling much better and will discharge her home today. I will see her back in the office in 2 weeks. Diagnosis - Discharge Diagnosis (1) Anorexia Status: Chronic (2) Weight loss Status: Chronic Discharge Plan - Discharge Data Disposition: Disch To Home/Self Care Condition at Discharge: Stable Discharge Diet: advance to your usual diet Activity: resume usual activities as tolerated Hygiene: no restrictions Weight Bearing at Discharge: full weight bearing Contact your physician if you experience:: fever over 101 - Discharge Medications New Magnesium Hydroxide Susp [Milk of Magnesia] 30 ml PO DAILY PRN PRN Reason: Constipation Metoprolol Tartrate Tab [Lopressor Tab] 50 mg PO BID tablet Cyclobenzaprine [Flexeril] 10 mg PO TID tablet Pantoprazole Tab [Protonix Tab] 40 mg PO DAILY #60 tablet Continue Metoprolol Tartrate 12.5 mg PO BID Albuterol Sulfate [Proair HFA] 2 puff INH Q4H PRN PRN Reason: Shortness Of Breath/Wheezing Megestrol Liquid [Megace Liquid] 5 ml PO BID predniSONE TAB [PredniSONE] 5 mg PO DAILY traMADol TAB [Ultram] 100 mg PO BID HYDROcodone/ACETAMIN 5-325 [[place] 5-325] 1 tablet PO BID PRN PRN Reason: Pain Budesonide/Formoterol 160-4.5 [Symbicort 160-4.5] 2 puff INH BID Changed Albuterol/Ipratropium Neb [Duoneb] 1 cartridge RESP TX QID #120 Discontinued Ipratropium/Albuterol Inhaler [Combivent Respimat Inhaler] 1 puff INH QID - Follow Up or Referral - Forms/Instructions Exam - Constitutional Vitals: Period Temp Pulse Resp BP Sys/Flores Pulse Ox Last 24 Hr 97.3 F-99.1 F 66-121 16-24 108-160/54-86 91-100 Exam: Objective well-developed white female no acute distress. She is awake and alert. She states she is feeling much better and her appetite has improved. Cardiovascular: Heart rate is regular without murmurs or gallops. Respiratory: Patient has scant expiratory wheeze. Abdomen: Abdomen soft and nontender to palpation. Discharge Results Procedures and tests throughout hospitalization: Pending Orders 05/23/17 10:09 Blood Culture Stat 05/25/17 Occult Blood, Stool Routine 05/27/17 06:24 Comprehensive Metabolic Panel IN AM Labs on day of discharge: Labs from last 24 hours 05/27/17 06:24 WBC 13.7 H RBC 3.64 L Hgb 11.4 L D Hct 35.2 L MCV 96.7 MCH 31 MCHC 32.4 RDW 12.6 Plt Count 274 D MPV 9.5 L Neut % (Auto) 85.9 H Lymph % (Auto) 7.5 L Rock % (Auto) 4.4 Eos % (Auto) 1.2 Baso % (Auto) 0.4 Neut # (Auto) 11.8 H Lymph # (Auto) 1.0 L Rock # (Auto) 0.6 Eos # (Auto) 0.2 Baso # (Auto) 0.1 Immature Gran % 0.6 Nucleated RBC % 0.0 Immature Gran # 0.08 Nucleated RBCs # 0.00 Immature Plt Fraction 0.0 Preliminary micro results at discharge 05/23/17 10:09 Blood Culture - Preliminary Blood No growth at 3 days 05/23/17 10:09 Blood Culture - Preliminary Blood No growth at 3 days 05/27/2017: All cultures have been negative. DS: Provider Date of admission: 05/23/17 09:23 Primary care physician: Kev Granda MD Attending physician on admission: Kev Granda MD Consults: 05/23/17 09:23 Consult to Case Mgmt/Social Srvs [CONS] Routine Reason for Case Mgmt/Social Srvs: Discharge Planning 05/23/17 09:25 Consult to Physician [CONS] Routine Comment: Consulting Provider: Kyrie Everett Person Notified: [email or web address] OLIVER Date Notified: 05/23/17 Time Notified: 10:54 05/23/17 10:38 Consult to Dietitian [CONS] Routine Reason for Dietitian: Dietary Consult 05/25/17 07:10 Consult to Physical Therapy [CONS] Routine Reason for Physical Therapy: Ambulation Discharging clinician: Kev Granda MD Expected date of discharge: 05/27/17
[2017-05-27 07:10] LABS: Bilirubin,Total 0.5 MG/DL (0.2-1.0); Calcium 7.4 MG/DL (8.5-10.1); Osmolality,Calculated 278.1 MOS/KG (273-304); Potassium 4.1 MMOL/L (3.5-5.1); Total Protein 4.4 G/DL (6.4-8.3)
[2017-05-27] MEDS: ALBUTEROL/IPRATROPIUM 3 ML NEB RESP TX SCH (07:10)
[2017-05-27 07:51] VITALS: BP 127/54
[2017-05-27] MEDS: CYCLOBENZAPRINE 10 MG TABLET PO SCH (08:14)
[2017-05-27] MEDS: PANTOPRAZOLE 40 MG TABLET PO SCH (08:14)
[2017-05-27] MEDS: MEGESTROL 400 MG/10 ML UDCUP PO SCH (08:14)
[2017-05-27] MEDS: DOCUSATE SODIUM 100 MG CAPSULE PO SCH (08:14)
[2017-05-27] MEDS: METOPROLOL TARTRATE 25 MG TABLET PO SCH (08:14)
[2017-05-27] MEDS: predniSONE 5 MG TABLET PO SCH (08:14)
[2017-05-27] MEDS: BUDESONIDE/FORMOTEROL 160-4.5 INHALER 6 GM INH SCH (08:15)
[2017-05-27] MEDS: POLYETHYLENE GLYCOL POWDER 17 GM PACK PO SCH (08:15)
--- NOTE | 2017-05-31 11:40 | Physician Query Form ---
CLICK EDIT DOCUMENT TO SELECT QUERY ANSWER --> OK --> SIGN Elvia Johnson RN, CCDS Certified Clinical Qa Software Test Engineer W) [phone] (f) [phone] [email or web address] PROVIDERS: Make your selection(s) from the choices in EACH section by typing an "x" and enter comments in the comment section. Please use your independent medical judgment in providing your response. This request does not imply that any particular answer is desired or expected. CLINICAL INDICATORS: (Providers should not edit this section) The medical record indicates that the patient was admitted with cachectic, "10 pound weight loss over the last year with decreased appetite", "She is markedly underweight with peripheral muscle wasting", "does have significant COPD which could account for weight loss" and the EGD is showing "LA classification grade C ulcerative esophagitis". Based on the above, could you clarify the appropriate diagnosis, if significant , that supports the above abnormalities and additional evaluation, monitoring, and/or treatment rendered: ( ) Cachectic due to Ulcerative esophagitis (x ) Cachectic due to Ulcerative esophagitis and COPD ( ) Cachectic due to COPD ( ) Other, please specify: ( ) Clinically unable to determine COMMENTS: PLEASE ALSO DOCUMENT RESPONSE IN PROGRESS NOTES AND/OR DISCHARGE SUMMARY Use of terms such as suspected, likely, or probable (associated with a specific diagnosis that is being evaluated, monitored, or treated as if it exists) are acceptable and can be restated in the discharge summary if not ruled out. MTDD
== END 2017-05-27 10:13 | disposition home or self-care (01) | DRG 380 ==
LOC: N.2E 09:41
PROVIDERS: ADMIT Family Medicine; ATTEND Family Medicine

== ENCOUNTER 2017-10-23 18:08 | Inpatient (IN) ==
[2017-10-23] MEDS ORDERED: ALBUTEROL/IPRATROPIUM 3 ML NEB RESP TX STA (19:03)
[2017-10-23] MEDS ORDERED: methylPREDNISolone SOD SUC 125 MG/2 ML VIAL IV STA (19:05)
[2017-10-23 19:26] LABS: Basophils # 0.1 10*3/uL (0.0-0.2); Basophils % 0.2 % (0.0-0.8); Hematocrit 40.7 VOL% (35.7-47.0); Hemoglobin 13.1 GM/DL (12.0-16.0); Immature Granulocytes % 0.6 %; Immature Granulocytes Absolute 0.14 #; Lymphocytes # 1.2 10*3/uL (1.4-4.0); Lymphocytes % 5.4 % (21.3-54.2); Mean Corpuscular HGB Conc 32.2 GM/DL (32-36); Mean Corpuscular Hemoglobin 30 PG (27-34); Mean Corpuscular Volume 93.8 FL (87-102); Mean Platelet Volume 9.5 FL (9.6-12.0); Monocytes # 1.4 10*3/uL (0.11-0.8); Monocytes % 6.1 % (1.7-12.7); Neutrophils # 19.8 10*3/uL (1.4-7.4); Neutrophils % 87.7 % (38.7-73.9); Platelet Count 251 T/CUMM (130-400); Red Blood Count 4.34 MC/CUMM (3.8-5.5); Red Cell Distribution Width 13.1 % (9.3-17.3); White Blood Count 22.6 T/CUMM (4-12)
[2017-10-23] MEDS ORDERED: methylPREDNISolone SOD SUC 1,000 MG/8 ML VIAL ONE (19:31)
[2017-10-23] MEDS ORDERED: methylPREDNISolone SOD SUC 125 MG/2 ML VIAL ONE (19:33)
[2017-10-23] MEDS ORDERED: ONDANSETRON 4 MG/2 ML VIAL ONE (19:36)
[2017-10-23] MEDS ORDERED: HYDROmorphone 2 MG/1 ML VIAL ONE (19:37)
[2017-10-23] MEDS ORDERED: HYDROmorphone 2 MG/1 ML VIAL IV STA (19:45)
[2017-10-23] MEDS ORDERED: ONDANSETRON 4 MG/2 ML VIAL IV STA (19:45)
[2017-10-23 19:49] LABS: Albumin 3.5 G/DL (3.4-5.0); Bilirubin,Total 0.9 MG/DL (0.2-1.0); Calcium 8.5 MG/DL (8.5-10.1); Potassium 4.3 MMOL/L (3.5-5.1); Total Protein 6.8 G/DL (6.4-8.3)
[2017-10-23] MEDS ORDERED: cefTRIAXone 1,000 MG in SODIUM CHLORIDE 0.9% 100 ML IV STA (20:16)
[2017-10-23] MEDS ORDERED: cefTRIAXone 1,000 MG VIAL ONE (20:26)
[2017-10-23] MEDS ORDERED: DIAZEPAM 10 MG/2 ML SYRINGE IV STA (20:37)
[2017-10-23] MEDS ORDERED: LORazepam 2 MG/1 ML VIAL ONE (20:49)
[2017-10-23] MEDS ORDERED: LORazepam 2 MG/1 ML VIAL IV STA (21:04)
[2017-10-23] MEDS ORDERED: ONDANSETRON 4 MG/2 ML VIAL IV PRN (23:22)
[2017-10-23] MEDS ORDERED: ALBUTEROL 2.5 MG/3 ML NEB RESP TX PRN (23:22)
[2017-10-23] MEDS ORDERED: ACETAMINOPHEN 325 MG TABLET PO PRN (23:22)
[2017-10-23] MEDS ORDERED: LEVOFLOXACIN INJ 500 MG in PREMIX 1 EACH IV ONE (23:30)
[2017-10-24] MEDS: DEXTROSE 5% NACL 0.45% 1,000 ML IV SCH (00:04)
[2017-10-24] MEDS: ALBUTEROL/IPRATROPIUM 3 ML NEB RESP TX SCH ×6 (00:40→19:44)
[2017-10-24] MEDS: LORazepam 1 MG TABLET PO PRN (04:20)
[2017-10-24] MEDS: methylPREDNISolone SOD SUC 125 MG/2 ML VIAL IV SCH ×3 (04:23→20:40)
[2017-10-24] MEDS ORDERED: ALBUTEROL 2.5 MG/3 ML NEB RESP TX PRN ×2 (05:09→05:17)
[2017-10-24] MEDS ORDERED: MEGESTROL 400 MG/10 ML UDCUP PO PRN (08:08)
[2017-10-24] MEDS ORDERED: MAGNESIUM HYDROXIDE SUSP 30 ML UDCUP PO PRN (08:08)
[2017-10-24] MEDS: METOPROLOL TARTRATE 25 MG TABLET PO SCH ×2 (09:24→20:39)
[2017-10-24] MEDS: PANTOPRAZOLE 40 MG TABLET PO SCH (09:24)
[2017-10-24] MEDS: BUDESONIDE/FORMOTEROL 160-4.5 INHALER 6 GM INH SCH ×2 (09:24→20:39)
[2017-10-24] MEDS: DOCUSATE SODIUM 100 MG CAPSULE PO SCH ×2 (09:24→20:38)
[2017-10-24] MEDS: POTASSIUM CHLORIDE 20 MEQ TABLET PO SCH (09:24)
[2017-10-24] MEDS: predniSONE 5 MG TABLET PO SCH (09:24)
[2017-10-24] MEDS: FUROSEMIDE 20 MG TABLET PO SCH (09:25)
[2017-10-24] MEDS: LEVOFLOXACIN INJ 250 MG in PREMIX 1 EACH IV SCH (20:41)
[2017-10-25] MEDS: ALBUTEROL/IPRATROPIUM 3 ML NEB RESP TX SCH ×4 (01:40→19:25)
[2017-10-25] MEDS: DEXTROSE 5% NACL 0.45% 1,000 ML IV SCH ×2 (02:31→21:28)
[2017-10-25] MEDS: methylPREDNISolone SOD SUC 125 MG/2 ML VIAL IV SCH ×3 (04:29→21:13)
[2017-10-25] MEDS: PANTOPRAZOLE 40 MG TABLET PO SCH (09:13)
[2017-10-25] MEDS: METOPROLOL TARTRATE 25 MG TABLET PO SCH ×2 (09:13→21:13)
[2017-10-25] MEDS: FUROSEMIDE 20 MG TABLET PO SCH (09:15)
[2017-10-25] MEDS: DOCUSATE SODIUM 100 MG CAPSULE PO SCH ×2 (09:16→21:13)
[2017-10-25] MEDS: BUDESONIDE/FORMOTEROL 160-4.5 INHALER 6 GM INH SCH ×2 (09:17→21:14)
[2017-10-25] MEDS: POTASSIUM CHLORIDE 20 MEQ TABLET PO SCH (09:19)
[2017-10-25 10:42] LABS: Calcium 8.6 MG/DL (8.5-10.1); Osmolality,Calculated 277.7 MOS/KG (273-304); Potassium 4.1 MMOL/L (3.5-5.1)
[2017-10-25 10:46] LABS: Troponin I Only 0.118 NG/ML (0.00-0.045)
[2017-10-25 10:51] LABS: Free T4 (Free Thyroxine) 1.19 NG/DL (0.76-1.46); Thyroid Stimulating Hormone 2.62 uIU/ml (0.358-3.74)
[2017-10-25] MEDS: BISACODYL 10 MG SUPP RECTAL PRN (16:40)
[2017-10-25] MEDS: LEVOFLOXACIN INJ 250 MG in PREMIX 1 EACH IV SCH (21:14)
[2017-10-25] MEDS: LORazepam 1 MG TABLET PO PRN (21:17)
[2017-10-26] MEDS: ALBUTEROL/IPRATROPIUM 3 ML NEB RESP TX SCH ×4 (03:23→18:56)
[2017-10-26] MEDS: methylPREDNISolone SOD SUC 125 MG/2 ML VIAL IV SCH ×3 (04:18→20:58)
[2017-10-26 05:43] LABS: Basophils % 0.1 % (0.0-0.8); Hematocrit 35.2 VOL% (35.7-47.0); Hemoglobin 11.4 GM/DL (12.0-16.0); Immature Granulocytes % 0.8 %; Immature Granulocytes Absolute 0.14 #; Lymphocytes # 0.6 10*3/uL (1.4-4.0); Lymphocytes % 3.1 % (21.3-54.2); Mean Corpuscular HGB Conc 32.4 GM/DL (32-36); Mean Corpuscular Hemoglobin 30 PG (27-34); Mean Corpuscular Volume 93.9 FL (87-102); Mean Platelet Volume 10.4 FL (9.6-12.0); Monocytes # 0.8 10*3/uL (0.11-0.8); Monocytes % 4.3 % (1.7-12.7); Neutrophils # 17.1 10*3/uL (1.4-7.4); Neutrophils % 91.7 % (38.7-73.9); Platelet Count 214 T/CUMM (130-400); Red Blood Count 3.75 MC/CUMM (3.8-5.5); Red Cell Distribution Width 13.1 % (9.3-17.3); White Blood Count 18.6 T/CUMM (4-12)
[2017-10-26 06:20] LABS: Calcium 8.1 MG/DL (8.5-10.1); Osmolality,Calculated 280.5 MOS/KG (273-304); Potassium 4.3 MMOL/L (3.5-5.1)
[2017-10-26 07:32] LABS: Eosinophils 1 % (0-10); Giant Platelets Few; Hypochromasia Slight; Lymphocytes 4 % (20-55); Nucleated Red Blood Cells 1 (0-5); Platelet Estimate Adequate; Segmented Neutrophils 93 % (50-85); Total Cells Counted 100
[2017-10-26] MEDS: FUROSEMIDE 20 MG TABLET PO SCH (08:40)
[2017-10-26] MEDS: PANTOPRAZOLE 40 MG TABLET PO SCH (08:43)
[2017-10-26] MEDS: DOCUSATE SODIUM 100 MG CAPSULE PO SCH ×2 (08:43→20:59)
[2017-10-26] MEDS: predniSONE 5 MG TABLET PO SCH (08:44)
[2017-10-26] MEDS: METOPROLOL TARTRATE 25 MG TABLET PO SCH ×2 (08:45→20:59)
[2017-10-26] MEDS: POTASSIUM CHLORIDE 20 MEQ TABLET PO SCH (08:47)
[2017-10-26] MEDS: BUDESONIDE/FORMOTEROL 160-4.5 INHALER 6 GM INH SCH ×2 (08:51→21:09)
[2017-10-26] MEDS: DEXTROSE 5% NACL 0.45% 1,000 ML IV SCH (18:57)
[2017-10-26] MEDS: LEVOFLOXACIN INJ 500 MG in PREMIX 1 EACH IV SCH (21:00)
[2017-10-27] MEDS: LORazepam 1 MG TABLET PO PRN (00:01)
[2017-10-27] MEDS: ALBUTEROL/IPRATROPIUM 3 ML NEB RESP TX SCH ×4 (00:42→19:25)
[2017-10-27] MEDS: methylPREDNISolone SOD SUC 125 MG/2 ML VIAL IV SCH ×3 (03:22→21:19)
[2017-10-27] MEDS: DOCUSATE SODIUM 100 MG CAPSULE PO SCH ×2 (08:53→21:19)
[2017-10-27] MEDS: METOPROLOL TARTRATE 25 MG TABLET PO SCH ×2 (08:53→21:19)
[2017-10-27] MEDS: BUDESONIDE/FORMOTEROL 160-4.5 INHALER 6 GM INH SCH ×2 (08:53→21:19)
[2017-10-27] MEDS: FUROSEMIDE 20 MG TABLET PO SCH (08:53)
[2017-10-27] MEDS: POTASSIUM CHLORIDE 20 MEQ TABLET PO SCH (08:53)
[2017-10-27] MEDS: PANTOPRAZOLE 40 MG TABLET PO SCH (08:53)
[2017-10-27] MEDS: DEXTROSE 5% NACL 0.45% 1,000 ML IV SCH (16:14)
[2017-10-27] MEDS: LEVOFLOXACIN INJ 500 MG in PREMIX 1 EACH IV SCH (21:20)
[2017-10-28] MEDS: ALBUTEROL/IPRATROPIUM 3 ML NEB RESP TX SCH ×4 (00:40→19:16)
[2017-10-28] MEDS: DEXTROSE 5% NACL 0.45% 1,000 ML IV SCH ×2 (03:47→12:30)
[2017-10-28] MEDS: methylPREDNISolone SOD SUC 125 MG/2 ML VIAL IV SCH ×3 (04:08→21:04)
[2017-10-28 06:55] LABS: Basophils % 0.1 % (0.0-0.8); Immature Granulocytes % 0.8 %; Immature Granulocytes Absolute 0.13 #
[2017-10-28 07:12] LABS: Hematocrit 40.6 VOL% (35.7-47.0); Hemoglobin 13.3 GM/DL (12.0-16.0); Lymphocytes # 0.4 10*3/uL (1.4-4.0); Lymphocytes % 2.4 % (21.3-54.2); Mean Corpuscular HGB Conc 32.8 GM/DL (32-36); Mean Corpuscular Hemoglobin 31 PG (27-34); Mean Corpuscular Volume 93.3 FL (87-102); Mean Platelet Volume 10.2 FL (9.6-12.0); Monocytes # 0.6 10*3/uL (0.11-0.8); Monocytes % 3.6 % (1.7-12.7); Neutrophils # 15.6 10*3/uL (1.4-7.4); Neutrophils % 93.1 % (38.7-73.9); Platelet Count 233 T/CUMM (130-400); Red Blood Count 4.35 MC/CUMM (3.8-5.5); White Blood Count 16.8 T/CUMM (4-12)
[2017-10-28 07:18] LABS: Lymphocytes 6 % (20-55); Segmented Neutrophils 94 % (50-85); Total Cells Counted 100
[2017-10-28 07:19] LABS: Hypochromasia 1+; Microcytosis 1+; Platelet Estimate Normal
[2017-10-28 07:27] LABS: Alanine Aminotransferase 9 U/L (13-56); Albumin 2.6 G/DL (3.4-5.0); Alkaline Phosphatase 97 U/L (45-117); Aspartate Amino Transferase 9 U/L (0-37); Bilirubin,Total < 0.39 MG/DL (0.2-1.0); Blood Urea Nitrogen 26 MG/DL (7-18); Calcium 8.4 MG/DL (8.5-10.1); Glucose 131 MG/DL (74-106); Lactic Acid 1.7 MMOL/L (0.4-2.0); Osmolality,Calculated 281.7 MOS/KG (273-304); Potassium 4.8 MMOL/L (3.5-5.1); Sodium 138 MMOL/L (136-145); Total Protein 5.8 G/DL (6.4-8.3)
[2017-10-28] MEDS: FUROSEMIDE 20 MG TABLET PO SCH (10:07)
[2017-10-28] MEDS: METOPROLOL TARTRATE 25 MG TABLET PO SCH ×2 (10:07→21:05)
[2017-10-28] MEDS: POTASSIUM CHLORIDE 20 MEQ TABLET PO SCH (10:07)
[2017-10-28] MEDS: DOCUSATE SODIUM 100 MG CAPSULE PO SCH ×2 (10:07→21:05)
[2017-10-28] MEDS: predniSONE 5 MG TABLET PO SCH (10:07)
[2017-10-28] MEDS: PANTOPRAZOLE 40 MG TABLET PO SCH (10:07)
[2017-10-28] MEDS: BUDESONIDE/FORMOTEROL 160-4.5 INHALER 6 GM INH SCH ×2 (10:08→21:06)
[2017-10-28] MEDS: BISACODYL 10 MG SUPP RECTAL PRN (17:15)
[2017-10-28] MEDS: LORazepam 1 MG TABLET PO PRN (21:04)
[2017-10-28] MEDS: LEVOFLOXACIN INJ 500 MG in PREMIX 1 EACH IV SCH (21:05)
[2017-10-29] MEDS: ALBUTEROL/IPRATROPIUM 3 ML NEB RESP TX SCH ×4 (00:23→21:27)
[2017-10-29] MEDS: methylPREDNISolone SOD SUC 125 MG/2 ML VIAL IV SCH ×3 (02:52→21:38)
[2017-10-29] MEDS: BUDESONIDE/FORMOTEROL 160-4.5 INHALER 6 GM INH SCH ×2 (09:14→21:39)
[2017-10-29] MEDS: PANTOPRAZOLE 40 MG TABLET PO SCH (09:15)
[2017-10-29] MEDS: FUROSEMIDE 20 MG TABLET PO SCH (09:15)
[2017-10-29] MEDS: DOCUSATE SODIUM 100 MG CAPSULE PO SCH ×2 (09:15→21:38)
[2017-10-29] MEDS: POTASSIUM CHLORIDE 20 MEQ TABLET PO SCH (09:15)
[2017-10-29] MEDS: METOPROLOL TARTRATE 25 MG TABLET PO SCH ×2 (09:15→21:39)
[2017-10-29] MEDS: DEXTROSE 5% NACL 0.45% 1,000 ML IV SCH (11:28)
[2017-10-29] MEDS: LEVOFLOXACIN INJ 500 MG in PREMIX 1 EACH IV SCH (21:37)
[2017-10-29] MEDS: LORazepam 1 MG TABLET PO PRN (21:38)
[2017-10-30] MEDS: ALBUTEROL/IPRATROPIUM 3 ML NEB RESP TX SCH ×2 (02:06→07:51)
[2017-10-30] MEDS: methylPREDNISolone SOD SUC 125 MG/2 ML VIAL IV SCH (02:43)
[2017-10-30 07:59] VITALS: BP 144/65
[2017-10-30] MEDS: PANTOPRAZOLE 40 MG TABLET PO SCH (08:55)
[2017-10-30] MEDS: DOCUSATE SODIUM 100 MG CAPSULE PO SCH (08:55)
[2017-10-30] MEDS: METOPROLOL TARTRATE 25 MG TABLET PO SCH (08:56)
[2017-10-30] MEDS: predniSONE 5 MG TABLET PO SCH (08:56)
[2017-10-30] MEDS: POTASSIUM CHLORIDE 20 MEQ TABLET PO SCH (08:56)
[2017-10-30] MEDS: FUROSEMIDE 20 MG TABLET PO SCH (08:56)
[2017-10-30] MEDS: BUDESONIDE/FORMOTEROL 160-4.5 INHALER 6 GM INH SCH (09:26)
[2017-10-30] MEDS: DEXTROSE 5% NACL 0.45% 1,000 ML IV SCH (10:35)
== END 2017-10-30 11:33 | disposition home health service (06) | DRG 190 ==
LOC: N.ED 18:08 → N.EDINP 21:56 → N.TELEN 22:12
PROVIDERS: ADMIT Family Medicine; ATTEND Family Medicine

== ENCOUNTER 2017-10-30 19:34 | Inpatient (IN) ==
[2017-10-30] MEDS ORDERED: methylPREDNISolone SOD SUC 125 MG/2 ML VIAL IV STA (20:35)
[2017-10-30 20:57] LABS: Basophils # 0.1 10*3/uL (0.0-0.2); Basophils % 0.2 % (0.0-0.8); Hematocrit 48.1 VOL% (35.7-47.0); Hemoglobin 15.8 GM/DL (12.0-16.0); Immature Granulocytes % 0.9 %; Immature Granulocytes Absolute 0.34 #; Lymphocytes # 2.1 10*3/uL (1.4-4.0); Lymphocytes % 5.6 % (21.3-54.2); Mean Corpuscular HGB Conc 32.8 GM/DL (32-36); Mean Corpuscular Hemoglobin 31 PG (27-34); Mean Corpuscular Volume 93.8 FL (87-102); Mean Platelet Volume 9.7 FL (9.6-12.0); Monocytes # 4.5 10*3/uL (0.11-0.8); Neutrophils # 30.2 10*3/uL (1.4-7.4); Neutrophils % 81.3 % (38.7-73.9); Platelet Count 364 T/CUMM (130-400); Red Blood Count 5.13 MC/CUMM (3.8-5.5); White Blood Count 37.1 T/CUMM (4-12)
[2017-10-30] MEDS: ALBUTEROL 2.5 MG/3 ML NEB RESP TX SCH ×2 (20:58→21:23)
[2017-10-30 21:04] LABS: Apearance,Urine CLEAR (Clear); Bilirubin,Urine Negative (Negative); Blood, Urine Small mg/dL (Negative); Glucose,Urine (UA) Negative (Negative); Ketones,Urine Negative (Negative); Mucus,Urine Occasional /LPF (Occasional); Nitrite,Urine Negative (Negative); Protein,Urine Negative; RBC,Urine 1 /HPF (0-4); Squamous Epithelial Cell,Urine Occasional /HPF (0-10); Urine Color Straw (Yellow); Urine Specific Gravity 1.009 (1.001-1.035); Urine Urobilinogen < 2.0 EU/DL (0.2-1.0); WBC,Urine <1 /HPF (0-6)
[2017-10-30 21:14] LABS: Alanine Aminotransferase 12 U/L (13-56); Albumin 3.3 G/DL (3.4-5.0); Alkaline Phosphatase 114 U/L (45-117); Aspartate Amino Transferase 14 U/L (0-37); Blood Urea Nitrogen 29 MG/DL (7-18); Calcium 8.5 MG/DL (8.5-10.1); Glucose 125 MG/DL (74-106); Potassium 4.7 MMOL/L (3.5-5.1); Sodium 136 MMOL/L (136-145); Total Protein 6.9 G/DL (6.4-8.3); Troponin I Only < 0.015 NG/ML (0.00-0.045)
[2017-10-30 21:18] LABS: Lymphocytes 4 % (20-55); Segmented Neutrophils 83 % (50-85); Total Cells Counted 100
[2017-10-30 21:19] LABS: Platelet Estimate Normal; Polychromasia Slight
[2017-10-30] MEDS ORDERED: methylPREDNISolone SOD SUC 125 MG/2 ML VIAL ONE (21:21)
[2017-10-30] MEDS ORDERED: LORazepam 2 MG/1 ML VIAL IV STA ×2 (21:22)
[2017-10-30] MEDS ORDERED: LORazepam 2 MG/1 ML VIAL ONE (21:22)
[2017-10-30] MEDS ORDERED: VANCOMYCIN INJ 500 MG in SODIUM CHLORIDE 0.9% 100 ML IV STA ×2 (22:06→23:27)
[2017-10-30] MEDS ORDERED: CEFEPIME 1,000 MG in SODIUM CHLORIDE 0.9% 100 ML IV STA (22:06)
[2017-10-30] MEDS ORDERED: SODIUM CHLORIDE 0.9% 1,000 ML IV STA (22:07)
[2017-10-30] MEDS ORDERED: metroNIDAZOLE INJ 500 MG in PREMIX 1 EACH IV STA (22:07)
[2017-10-30] MEDS ORDERED: VECURONIUM 10 MG VIAL IV ONE (22:53)
[2017-10-30] MEDS ORDERED: ETOMIDATE 20 MG/10 ML VIAL IV ONE (22:53)
[2017-10-30] MEDS ORDERED: ROCURONIUM 100 MG/10 ML VIAL IV ONE (22:53)
[2017-10-30] MEDS ORDERED: CEFEPIME 1,000 MG VIAL ONE (23:05)
[2017-10-31] LABS: Lactic Acid 4.2 MMOL/L (0.4-2.0)
[2017-10-31] MEDS: SODIUM CHLORIDE 0.45% 1,000 ML IV SCH ×3 (00:24→16:41)
[2017-10-31] MEDS: PROPOFOL 1,000 MG/100 ML BOTTLE IV SCH (01:21)
[2017-10-31] MEDS: IPRATROPIUM 500 MCG/2.5 ML NEB RESP TX SCH ×4 (03:10→19:09)
[2017-10-31] MEDS: ALBUTEROL 2.5 MG/3 ML NEB RESP TX SCH ×6 (03:10→23:28)
[2017-10-31 03:35] LABS: Basophils % 0.1 % (0.0-0.8); Hematocrit 37.1 VOL% (35.7-47.0); Hemoglobin 12.4 GM/DL (12.0-16.0); Immature Granulocytes % 0.6 %; Immature Granulocytes Absolute 0.14 #; Lymphocytes # 0.3 10*3/uL (1.4-4.0); Lymphocytes % 1.3 % (21.3-54.2); Mean Corpuscular HGB Conc 33.4 GM/DL (32-36); Mean Corpuscular Hemoglobin 31 PG (27-34); Mean Corpuscular Volume 91.8 FL (87-102); Mean Platelet Volume 9.8 FL (9.6-12.0); Monocytes % 4.4 % (1.7-12.7); Neutrophils # 21.2 10*3/uL (1.4-7.4); Neutrophils % 93.6 % (38.7-73.9); Platelet Count 233 T/CUMM (130-400); Red Blood Count 4.04 MC/CUMM (3.8-5.5); Red Cell Distribution Width 13.1 % (9.3-17.3); White Blood Count 22.7 T/CUMM (4-12)
[2017-10-31 03:57] LABS: Alanine Aminotransferase < 6 U/L (13-56); Albumin 2.4 G/DL (3.4-5.0); Alkaline Phosphatase 79 U/L (45-117); Aspartate Amino Transferase 9 U/L (0-37); Blood Urea Nitrogen 33 MG/DL (7-18); Calcium 7.5 MG/DL (8.5-10.1); Glucose 129 MG/DL (74-106); Osmolality,Calculated 285.5 MOS/KG (273-304); Potassium 4.4 MMOL/L (3.5-5.1); Sodium 139 MMOL/L (136-145); Total Protein 4.8 G/DL (6.4-8.3)
[2017-10-31 04:16] LABS: Band Neutrophils 2 % (0-10); Lymphocytes 1 % (20-55); Myelocytes 1 %; Platelet Estimate Normal; Segmented Neutrophils 96 % (50-85); Total Cells Counted 100
[2017-10-31 05:03] LABS: ABG Base Excess 9.7 MMOL/L (-2.5-2.5); ABG HCO3 33.5 MMOL/L (20-26); ABG Oxygen Saturation 99.8 % (95-100); ABG PCO2 65.7 MM HG (35-48); ABG PH 7.367 (7.35-7.45); ABG TCO2 33.7 MMOL/L (23-27); Allen Test Positive; Pt O2 Delivery Device Ventilator
[2017-10-31] MEDS: methylPREDNISolone SOD SUC 40 MG/1 ML VIAL IV SCH ×3 (05:17→22:02)
[2017-10-31] MEDS: MEROPENEM 1,000 MG in SYRINGE 1 EACH IV SCH ×3 (05:22→22:03)
[2017-10-31] MEDS: ENOXAPARIN 40 MG/0.4 ML SYRINGE SUBCUT SCH (08:39)
[2017-10-31] MEDS: DOCUSATE SODIUM 100 MG CAPSULE PO SCH ×2 (08:39→22:03)
[2017-10-31] MEDS: FUROSEMIDE 20 MG TABLET PO SCH (08:40)
[2017-10-31] MEDS: PANTOPRAZOLE 40 MG VIAL IV SCH (08:41)
[2017-10-31] MEDS ORDERED: DEXTROSE 50% 25 GM/50 ML VIAL IV PRN (13:55)
[2017-10-31] MEDS ORDERED: GLUCAGON 1 MG VIAL IM PRN (13:55)
[2017-10-31] MEDS: BUDESONIDE/FORMOTEROL 160-4.5 INHALER 6 GM INH SCH ×2 (14:29→22:03)
[2017-10-31] MEDS: INSULIN REGULAR 100 UNIT/ML SUBCUT SCH (18:13)
[2017-10-31] MEDS: VANCOMYCIN INJ 500 MG in SODIUM CHLORIDE 0.9% 100 ML IV SCH (22:38)
[2017-11-01] MEDS: IPRATROPIUM 500 MCG/2.5 ML NEB RESP TX SCH ×4 (00:01→20:18)
[2017-11-01] MEDS: INSULIN REGULAR 100 UNIT/ML SUBCUT SCH ×4 (00:26→18:33)
[2017-11-01] MEDS: ALBUTEROL 2.5 MG/3 ML NEB RESP TX SCH ×6 (03:05→23:11)
[2017-11-01 03:10] LABS: ABG HCO3 32.8 MMOL/L (20-26); ABG Oxygen Saturation 99.9 % (95-100); ABG PCO2 51.5 MM HG (35-48); ABG PH 7.437 (7.35-7.45); ABG TCO2 31.2 MMOL/L (23-27); Allen Test Positive; Pt O2 Delivery Device Ventilator
[2017-11-01] MEDS: PROPOFOL 1,000 MG/100 ML BOTTLE IV SCH ×3 (04:57→18:52)
[2017-11-01] MEDS: SODIUM CHLORIDE 0.45% 1,000 ML IV SCH ×4 (04:58→16:12)
[2017-11-01 05:14] LABS: Basophils % 0.1 % (0.0-0.8); Hematocrit 32.5 VOL% (35.7-47.0); Hemoglobin 10.5 GM/DL (12.0-16.0); Immature Granulocytes % 0.6 %; Immature Granulocytes Absolute 0.09 #; Lymphocytes # 0.4 10*3/uL (1.4-4.0); Lymphocytes % 2.4 % (21.3-54.2); Mean Corpuscular HGB Conc 32.3 GM/DL (32-36); Mean Corpuscular Hemoglobin 30 PG (27-34); Mean Corpuscular Volume 92.3 FL (87-102); Mean Platelet Volume 9.8 FL (9.6-12.0); Monocytes # 0.6 10*3/uL (0.11-0.8); Monocytes % 4.1 % (1.7-12.7); Neutrophils % 92.8 % (38.7-73.9); Platelet Count 215 T/CUMM (130-400); Red Blood Count 3.52 MC/CUMM (3.8-5.5); White Blood Count 15.1 T/CUMM (4-12)
[2017-11-01] MEDS: methylPREDNISolone SOD SUC 40 MG/1 ML VIAL IV SCH ×3 (05:39→20:20)
[2017-11-01] MEDS: MEROPENEM 1,000 MG in SYRINGE 1 EACH IV SCH ×3 (05:42→20:20)
[2017-11-01 05:47] LABS: Prealbumin 17.9 MG/DL (20-40)
[2017-11-01 05:58] LABS: Band Neutrophils 3 % (0-10); Lymphocytes 6 % (20-55); Platelet Estimate Normal; Segmented Neutrophils 89 % (50-85); Total Cells Counted 100
[2017-11-01 09:21] LABS: ABG HCO3 33.8 MMOL/L (20-26); ABG Oxygen Saturation 99.9 % (95-100); ABG PCO2 35.2 MM HG (35-48); ABG PH 7.575 (7.35-7.45); ABG TCO2 29.2 MMOL/L (23-27)
[2017-11-01] MEDS: ENOXAPARIN 40 MG/0.4 ML SYRINGE SUBCUT SCH (09:47)
[2017-11-01] MEDS: DOCUSATE SODIUM 100 MG CAPSULE PO SCH ×2 (09:47→20:21)
[2017-11-01] MEDS: PANTOPRAZOLE 40 MG VIAL IV SCH (09:47)
[2017-11-01] MEDS: FUROSEMIDE 20 MG TABLET PO SCH (09:47)
[2017-11-01] MEDS: BUDESONIDE/FORMOTEROL 160-4.5 INHALER 6 GM INH SCH ×2 (09:50→20:21)
[2017-11-01] MEDS: VANCOMYCIN INJ 500 MG in SODIUM CHLORIDE 0.9% 100 ML IV SCH (22:19)
[2017-11-02] MEDS: INSULIN REGULAR 100 UNIT/ML SUBCUT SCH ×3 (00:11→12:21)
[2017-11-02] MEDS: PROPOFOL 1,000 MG/100 ML BOTTLE IV SCH (01:09)
[2017-11-02] MEDS: SODIUM CHLORIDE 0.45% 1,000 ML IV SCH ×3 (01:10→20:10)
[2017-11-02] MEDS: IPRATROPIUM 500 MCG/2.5 ML NEB RESP TX SCH ×2 (01:11→06:49)
[2017-11-02] MEDS: ALBUTEROL 2.5 MG/3 ML NEB RESP TX SCH ×2 (02:38→06:49)
[2017-11-02 02:50] LABS: ABG Base Excess 7.8 MMOL/L (-2.5-2.5); ABG HCO3 31.6 MMOL/L (20-26); ABG Oxygen Saturation 99.4 % (95-100); ABG PCO2 45.4 MM HG (35-48); ABG PH 7.464 (7.35-7.45); ABG TCO2 29.5 MMOL/L (23-27); Allen Test Positive; Pt O2 Delivery Device Ventilator
[2017-11-02] MEDS: MEROPENEM 1,000 MG in SYRINGE 1 EACH IV SCH ×3 (04:45→20:27)
[2017-11-02] MEDS: methylPREDNISolone SOD SUC 40 MG/1 ML VIAL IV SCH ×3 (04:52→20:27)
[2017-11-02 05:29] LABS: Basophils % 0.1 % (0.0-0.8); Hematocrit 29.7 VOL% (35.7-47.0); Hemoglobin 10.1 GM/DL (12.0-16.0); Immature Granulocytes % 0.6 %; Immature Granulocytes Absolute 0.08 #; Lymphocytes # 0.4 10*3/uL (1.4-4.0); Lymphocytes % 2.7 % (21.3-54.2); Mean Corpuscular Hemoglobin 31 PG (27-34); Mean Corpuscular Volume 90.3 FL (87-102); Mean Platelet Volume 10.4 FL (9.6-12.0); Monocytes % 7.1 % (1.7-12.7); Neutrophils # 12.2 10*3/uL (1.4-7.4); Neutrophils % 89.5 % (38.7-73.9); Platelet Count 218 T/CUMM (130-400); Red Blood Count 3.29 MC/CUMM (3.8-5.5); Red Cell Distribution Width 13.3 % (9.3-17.3); White Blood Count 13.6 T/CUMM (4-12)
[2017-11-02 06:00] LABS: Calcium 7.3 MG/DL (8.5-10.1); Osmolality,Calculated 282.5 MOS/KG (273-304); Potassium 3.8 MMOL/L (3.5-5.1)
[2017-11-02 06:27] LABS: Giant Platelets Few; Hypochromasia 1+; Lymphocytes 4 % (20-55); Microcytosis Slight; Platelet Estimate Adequate; Segmented Neutrophils 90 % (50-85); Total Cells Counted 100
[2017-11-02] MEDS: FUROSEMIDE 20 MG TABLET PO SCH (08:42)
[2017-11-02] MEDS: BUDESONIDE/FORMOTEROL 160-4.5 INHALER 6 GM INH SCH ×2 (08:43→20:27)
[2017-11-02] MEDS: ENOXAPARIN 40 MG/0.4 ML SYRINGE SUBCUT SCH (08:43)
[2017-11-02] MEDS: PANTOPRAZOLE 40 MG VIAL IV SCH (08:44)
[2017-11-02] MEDS: DOCUSATE SODIUM 100 MG CAPSULE PO SCH ×2 (08:44→20:27)
[2017-11-02] MEDS: ALBUTEROL/IPRATROPIUM 3 ML NEB RESP TX SCH ×2 (13:31→19:27)
[2017-11-02] MEDS: VANCOMYCIN INJ 500 MG in SODIUM CHLORIDE 0.9% 100 ML IV SCH (23:12)
[2017-11-03] MEDS: ALBUTEROL/IPRATROPIUM 3 ML NEB RESP TX SCH ×4 (00:59→19:51)
[2017-11-03] MEDS: MEROPENEM 1,000 MG in SYRINGE 1 EACH IV SCH ×3 (04:35→20:39)
[2017-11-03] MEDS: methylPREDNISolone SOD SUC 40 MG/1 ML VIAL IV SCH ×3 (04:40→20:37)
[2017-11-03] MEDS: FUROSEMIDE 20 MG TABLET PO SCH (08:53)
[2017-11-03] MEDS: DOCUSATE SODIUM 100 MG CAPSULE PO SCH ×2 (08:53→20:37)
[2017-11-03] MEDS: ENOXAPARIN 40 MG/0.4 ML SYRINGE SUBCUT SCH (08:55)
[2017-11-03] MEDS: PANTOPRAZOLE 40 MG VIAL IV SCH (08:55)
[2017-11-03] MEDS: BUDESONIDE/FORMOTEROL 160-4.5 INHALER 6 GM INH SCH ×2 (08:57→20:43)
[2017-11-03] MEDS: SODIUM CHLORIDE 0.45% 1,000 ML IV SCH (09:59)
[2017-11-03] MEDS: POTASSIUM CHLORIDE 20 MEQ TABLET PO SCH (11:28)
[2017-11-03] MEDS: METOPROLOL TARTRATE 25 MG TABLET PO SCH ×2 (11:28→20:36)
[2017-11-03] MEDS: VANCOMYCIN INJ 500 MG in SODIUM CHLORIDE 0.9% 100 ML IV SCH (13:49)
[2017-11-03] MEDS: ACETAMINOPHEN 325 MG TABLET PO PRN (20:36)
[2017-11-04] MEDS: VANCOMYCIN INJ 500 MG in SODIUM CHLORIDE 0.9% 100 ML IV SCH (01:24)
[2017-11-04] MEDS: ALBUTEROL/IPRATROPIUM 3 ML NEB RESP TX SCH ×4 (02:17→19:55)
[2017-11-04] MEDS: methylPREDNISolone SOD SUC 40 MG/1 ML VIAL IV SCH ×3 (05:10→20:30)
[2017-11-04] MEDS: MEROPENEM 1,000 MG in SYRINGE 1 EACH IV SCH (05:10)
[2017-11-04] MEDS: ENOXAPARIN 40 MG/0.4 ML SYRINGE SUBCUT SCH (10:20)
[2017-11-04] MEDS: FUROSEMIDE 20 MG TABLET PO SCH (10:21)
[2017-11-04] MEDS: PANTOPRAZOLE 40 MG TABLET PO SCH (10:21)
[2017-11-04] MEDS: POTASSIUM CHLORIDE 20 MEQ TABLET PO SCH (10:21)
[2017-11-04] MEDS: cefTRIAXone 1,000 MG in SYRINGE 1 EACH IV SCH (10:21)
[2017-11-04] MEDS: DOCUSATE SODIUM 100 MG CAPSULE PO SCH ×2 (10:21→20:30)
[2017-11-04] MEDS: METOPROLOL TARTRATE 25 MG TABLET PO SCH ×2 (10:21→20:30)
[2017-11-04] MEDS: BUDESONIDE/FORMOTEROL 160-4.5 INHALER 6 GM INH SCH ×2 (10:23→21:12)
[2017-11-04] MEDS: MAGNESIUM HYDROXIDE SUSP 30 ML UDCUP PO PRN (10:37)
[2017-11-05] MEDS: ALBUTEROL/IPRATROPIUM 3 ML NEB RESP TX SCH ×4 (02:08→19:42)
[2017-11-05 02:45] LABS: Basophils % 0.2 % (0.0-0.8); Hematocrit 40.4 VOL% (35.7-47.0); Hemoglobin 13.5 GM/DL (12.0-16.0); Immature Granulocytes % 1.1 %; Immature Granulocytes Absolute 0.27 #; Lymphocytes # 0.8 10*3/uL (1.4-4.0); Mean Corpuscular HGB Conc 33.4 GM/DL (32-36); Mean Corpuscular Hemoglobin 31 PG (27-34); Mean Corpuscular Volume 92.2 FL (87-102); Mean Platelet Volume 9.7 FL (9.6-12.0); Monocytes # 0.9 10*3/uL (0.11-0.8); Monocytes % 3.4 % (1.7-12.7); Neutrophils # 23.5 10*3/uL (1.4-7.4); Neutrophils % 92.3 % (38.7-73.9); Platelet Count 281 T/CUMM (130-400); Red Blood Count 4.38 MC/CUMM (3.8-5.5); Red Cell Distribution Width 12.7 % (9.3-17.3); White Blood Count 25.4 T/CUMM (4-12)
[2017-11-05] MEDS ORDERED: traMADol 50 MG TABLET PO ONE (04:12)
[2017-11-05 04:39] LABS: Potassium 4.6 MMOL/L (3.5-5.1)
[2017-11-05 05:21] LABS: Lymphocytes 4 % (20-55); Segmented Neutrophils 95 % (50-85); Total Cells Counted 100
[2017-11-05 05:22] LABS: Hypochromasia Slight; Platelet Estimate Normal
[2017-11-05] MEDS: PANTOPRAZOLE 40 MG TABLET PO SCH (09:55)
[2017-11-05] MEDS: DOCUSATE SODIUM 100 MG CAPSULE PO SCH ×2 (09:55→20:58)
[2017-11-05] MEDS: POTASSIUM CHLORIDE 20 MEQ TABLET PO SCH (09:55)
[2017-11-05] MEDS: FUROSEMIDE 20 MG TABLET PO SCH (09:55)
[2017-11-05] MEDS: METOPROLOL TARTRATE 25 MG TABLET PO SCH ×2 (09:56→20:58)
[2017-11-05] MEDS: ENOXAPARIN 40 MG/0.4 ML SYRINGE SUBCUT SCH (09:56)
[2017-11-05] MEDS: methylPREDNISolone SOD SUC 40 MG/1 ML VIAL IV SCH ×2 (10:01→20:58)
[2017-11-05] MEDS: cefTRIAXone 1,000 MG in SYRINGE 1 EACH IV SCH (10:04)
[2017-11-05] MEDS: BUDESONIDE/FORMOTEROL 160-4.5 INHALER 6 GM INH SCH ×2 (10:08→20:58)
[2017-11-05] MEDS: ACETAMINOPHEN 325 MG TABLET PO PRN (16:05)
[2017-11-05] MEDS ORDERED: MEGESTROL 400 MG/10 ML UDCUP PO PRN (19:48)
[2017-11-05] MEDS: CITALOPRAM 20 MG TABLET PO SCH (20:58)
[2017-11-05] MEDS: MAGNESIUM HYDROXIDE SUSP 30 ML UDCUP PO PRN (21:02)
[2017-11-06] MEDS: ONDANSETRON 4 MG/2 ML VIAL IV PRN ×2 (00:29→22:24)
[2017-11-06] MEDS: ALBUTEROL/IPRATROPIUM 3 ML NEB RESP TX SCH ×4 (01:23→19:22)
[2017-11-06 06:48] LABS: Basophils % 0.2 % (0.0-0.8); Hematocrit 41.5 VOL% (35.7-47.0); Hemoglobin 13.3 GM/DL (12.0-16.0); Immature Granulocytes % 0.7 %; Immature Granulocytes Absolute 0.17 #; Lymphocytes # 0.7 10*3/uL (1.4-4.0); Mean Corpuscular Hemoglobin 30 PG (27-34); Mean Corpuscular Volume 94.1 FL (87-102); Monocytes # 0.8 10*3/uL (0.11-0.8); Monocytes % 3.4 % (1.7-12.7); Neutrophils # 22.9 10*3/uL (1.4-7.4); Neutrophils % 92.7 % (38.7-73.9); Platelet Count 281 T/CUMM (130-400); Red Blood Count 4.41 MC/CUMM (3.8-5.5); Red Cell Distribution Width 12.5 % (9.3-17.3); White Blood Count 24.7 T/CUMM (4-12)
[2017-11-06 07:15] LABS: Calcium 8.1 MG/DL (8.5-10.1); Osmolality,Calculated 283.5 MOS/KG (273-304); Potassium 4.5 MMOL/L (3.5-5.1)
[2017-11-06 07:43] LABS: Band Neutrophils 2 % (0-10); Lymphocytes 3 % (20-55); Segmented Neutrophils 92 % (50-85); Total Cells Counted 100
[2017-11-06 07:44] LABS: Hypochromasia 2+; Microcytosis Slight; Platelet Estimate Adequate
[2017-11-06] MEDS: FUROSEMIDE 20 MG TABLET PO SCH (09:43)
[2017-11-06] MEDS: DOCUSATE SODIUM 100 MG CAPSULE PO SCH ×2 (09:43→22:25)
[2017-11-06] MEDS: METOPROLOL TARTRATE 25 MG TABLET PO SCH ×2 (09:43→22:26)
[2017-11-06] MEDS: POTASSIUM CHLORIDE 20 MEQ TABLET PO SCH (09:44)
[2017-11-06] MEDS: ENOXAPARIN 40 MG/0.4 ML SYRINGE SUBCUT SCH (09:44)
[2017-11-06] MEDS: PANTOPRAZOLE 40 MG TABLET PO SCH (09:44)
[2017-11-06] MEDS: methylPREDNISolone SOD SUC 40 MG/1 ML VIAL IV SCH (09:48)
[2017-11-06] MEDS: cefTRIAXone 1,000 MG in SYRINGE 1 EACH IV SCH (09:51)
[2017-11-06] MEDS: BUDESONIDE/FORMOTEROL 160-4.5 INHALER 6 GM INH SCH ×2 (09:54→22:26)
[2017-11-06] MEDS ORDERED: POLYETHYLENE GLYCOL POWDER 17 GM PACK PO PRN (10:37)
[2017-11-06] MEDS ORDERED: methylPREDNISolone SOD SUC 40 MG/1 ML VIAL IV SCH (11:00)
[2017-11-06] MEDS: CITALOPRAM 20 MG TABLET PO SCH (22:25)
[2017-11-06] MEDS: MAGNESIUM HYDROXIDE SUSP 30 ML UDCUP PO PRN (22:27)
[2017-11-07] MEDS: ALBUTEROL/IPRATROPIUM 3 ML NEB RESP TX SCH ×5 (01:06→23:59)
[2017-11-07 06:08] LABS: Basophils % 0.2 % (0.0-0.8); Eosinophils # 0.1 10*3/uL (0.0-0.87); Eosinophils % 0.3 % (0.00-10.9); Hematocrit 40.2 VOL% (35.7-47.0); Hemoglobin 13.4 GM/DL (12.0-16.0); Immature Granulocytes % 0.6 %; Immature Granulocytes Absolute 0.12 #; Lymphocytes % 4.7 % (21.3-54.2); Mean Corpuscular HGB Conc 33.3 GM/DL (32-36); Mean Corpuscular Hemoglobin 31 PG (27-34); Mean Corpuscular Volume 92.2 FL (87-102); Monocytes # 1.2 10*3/uL (0.11-0.8); Monocytes % 5.5 % (1.7-12.7); Neutrophils % 88.7 % (38.7-73.9); Platelet Count 267 T/CUMM (130-400); Red Blood Count 4.36 MC/CUMM (3.8-5.5); Red Cell Distribution Width 12.7 % (9.3-17.3); White Blood Count 21.4 T/CUMM (4-12)
[2017-11-07 06:31] LABS: Giant Platelets Few; Hypochromasia 1+; Lymphocytes 6 % (20-55); Ovalocytes Slight; Platelet Estimate Adequate; Segmented Neutrophils 84 % (50-85); Total Cells Counted 100
[2017-11-07 06:32] LABS: Microcytosis Slight; Osmolality,Calculated 282.5 MOS/KG (273-304); Potassium 4.4 MMOL/L (3.5-5.1)
[2017-11-07] MEDS: POTASSIUM CHLORIDE 20 MEQ TABLET PO SCH (10:37)
[2017-11-07] MEDS: ENOXAPARIN 40 MG/0.4 ML SYRINGE SUBCUT SCH (10:37)
[2017-11-07] MEDS: cefTRIAXone 1,000 MG in SYRINGE 1 EACH IV SCH (10:38)
[2017-11-07] MEDS: METOPROLOL TARTRATE 25 MG TABLET PO SCH ×2 (10:39→20:58)
[2017-11-07] MEDS: DOCUSATE SODIUM 100 MG CAPSULE PO SCH ×2 (10:39→20:59)
[2017-11-07] MEDS: PANTOPRAZOLE 40 MG TABLET PO SCH (10:39)
[2017-11-07] MEDS: BUDESONIDE/FORMOTEROL 160-4.5 INHALER 6 GM INH SCH ×2 (10:39→20:59)
[2017-11-07] MEDS: FUROSEMIDE 20 MG TABLET PO SCH (10:39)
[2017-11-07] MEDS: predniSONE 10 MG TABLET PO SCH (10:45)
[2017-11-07 16:53] LABS: Apearance,Urine CLEAR (Clear); Bilirubin,Urine Negative (Negative); Blood, Urine Small mg/dL (Negative); Glucose,Urine (UA) Negative (Negative); Ketones,Urine Negative (Negative); Nitrite,Urine Negative (Negative); Protein,Urine Negative; RBC,Urine 6 /HPF (0-4); Squamous Epithelial Cell,Urine Occasional /HPF (0-10); Urine Color Straw (Yellow); Urine Specific Gravity 1.008 (1.001-1.035); Urine Urobilinogen < 2.0 EU/DL (0.2-1.0); WBC,Urine 3 /HPF (0-6)
[2017-11-07] MEDS ORDERED: methylPREDNISolone SOD SUC 40 MG/1 ML VIAL IV ONE (18:13)
[2017-11-07] MEDS: CITALOPRAM 20 MG TABLET PO SCH (20:58)
[2017-11-07] MEDS: LORazepam 0.5 MG TABLET PO PRN (23:50)
[2017-11-07] MEDS: ALBUTEROL/IPRATROPIUM 3 ML NEB RESP TX PRN (23:58)
[2017-11-08] MEDS: ALBUTEROL/IPRATROPIUM 3 ML NEB RESP TX PRN (05:41)
[2017-11-08] MEDS: LORazepam 0.5 MG TABLET PO PRN (06:59)
[2017-11-08] MEDS: ALBUTEROL/IPRATROPIUM 3 ML NEB RESP TX SCH ×5 (07:25→23:00)
[2017-11-08] MEDS ORDERED: methylPREDNISolone SOD SUC 40 MG/1 ML VIAL IV ONE (07:55)
[2017-11-08] MEDS ORDERED: MORPHINE 10 MG/1 ML VIAL ONE (08:33)
[2017-11-08] MEDS: ENOXAPARIN 40 MG/0.4 ML SYRINGE SUBCUT SCH ×2 (08:45→09:00)
[2017-11-08] MEDS: POTASSIUM CHLORIDE 20 MEQ TABLET PO SCH ×2 (08:45→09:00)
[2017-11-08] MEDS: predniSONE 10 MG TABLET PO SCH ×2 (08:45→08:54)
[2017-11-08] MEDS: METOPROLOL TARTRATE 25 MG TABLET PO SCH ×3 (08:46→21:54)
[2017-11-08] MEDS: FUROSEMIDE 20 MG TABLET PO SCH ×2 (08:46→09:00)
[2017-11-08] MEDS: PANTOPRAZOLE 40 MG TABLET PO SCH ×2 (08:46→09:00)
[2017-11-08] MEDS: DOCUSATE SODIUM 100 MG CAPSULE PO SCH ×2 (08:46→21:54)
[2017-11-08] MEDS: cefTRIAXone 1,000 MG in SYRINGE 1 EACH IV SCH (08:47)
[2017-11-08] MEDS: BUDESONIDE/FORMOTEROL 160-4.5 INHALER 6 GM INH SCH ×2 (08:54→21:54)
[2017-11-08 08:56] LABS: Calcium 8.6 MG/DL (8.5-10.1); Osmolality,Calculated 279.8 MOS/KG (273-304); Potassium 4.9 MMOL/L (3.5-5.1)
[2017-11-08] MEDS ORDERED: METOPROLOL TARTRATE 5 MG/5 ML VIAL IV ONE (09:30)
[2017-11-08] MEDS ORDERED: FUROSEMIDE 20 MG/2 ML VIAL IV ONE (09:30)
[2017-11-08 09:40] LABS: ABG Base Excess 11.1 MMOL/L (-2.5-2.5); ABG HCO3 34.9 MMOL/L (20-26); ABG PH 7.322 (7.35-7.45); ABG TCO2 36.4 MMOL/L (23-27); Allen Test Positive; Pt O2 Delivery Device BIPAP
[2017-11-08 09:43] LABS: ABG PCO2 80.7 MM HG (35-48)
[2017-11-08] MEDS ORDERED: MORPHINE 2 MG/1 ML SYRINGE IV PRN (10:08)
[2017-11-08] MEDS: MORPHINE 10 MG/1 ML VIAL IV PRN ×2 (12:49→22:01)
[2017-11-08] MEDS: ONDANSETRON 4 MG/2 ML VIAL IV PRN (12:50)
[2017-11-08] MEDS: LORazepam 2 MG/1 ML VIAL IV PRN (17:06)
[2017-11-08] MEDS: THEOPHYLLINE ER (24 HR) 200 MG CAPSULE PO SCH (18:37)
[2017-11-08] MEDS: CITALOPRAM 20 MG TABLET PO SCH (21:53)
[2017-11-09] MEDS: LORazepam 2 MG/1 ML VIAL IV PRN ×3 (00:45→22:32)
[2017-11-09] MEDS: ALBUTEROL/IPRATROPIUM 3 ML NEB RESP TX SCH (03:00)
[2017-11-09] MEDS: FUROSEMIDE 20 MG TABLET PO SCH (08:38)
[2017-11-09] MEDS: THEOPHYLLINE ER (24 HR) 200 MG CAPSULE PO SCH ×2 (08:38→17:26)
[2017-11-09] MEDS: POTASSIUM CHLORIDE 20 MEQ TABLET PO SCH (08:38)
[2017-11-09] MEDS: DOCUSATE SODIUM 100 MG CAPSULE PO SCH ×2 (08:38→20:10)
[2017-11-09] MEDS: METOPROLOL TARTRATE 25 MG TABLET PO SCH ×2 (08:39→20:10)
[2017-11-09] MEDS: ENOXAPARIN 40 MG/0.4 ML SYRINGE SUBCUT SCH ×2 (08:39→08:41)
[2017-11-09] MEDS: predniSONE 10 MG TABLET PO SCH (08:40)
[2017-11-09] MEDS: PANTOPRAZOLE 40 MG TABLET PO SCH (08:40)
[2017-11-09] MEDS: MORPHINE 10 MG/1 ML VIAL IV PRN ×2 (09:02→17:27)
[2017-11-09] MEDS: ONDANSETRON 4 MG/2 ML VIAL IV PRN ×2 (09:02→17:27)
[2017-11-09] MEDS: cefTRIAXone 1,000 MG in SYRINGE 1 EACH IV SCH (09:24)
[2017-11-09] MEDS: BUDESONIDE/FORMOTEROL 160-4.5 INHALER 6 GM INH SCH ×2 (09:25→20:10)
[2017-11-09] MEDS: CITALOPRAM 20 MG TABLET PO SCH (20:09)
[2017-11-10] MEDS: LORazepam 2 MG/1 ML VIAL IV PRN (02:41)
[2017-11-10 05:32] VITALS: BP 65/47
== END 2017-11-10 05:02 | disposition expired | DRG 208 ==
LOC: EDUNIT# → N.ED 19:34 → N.EDINP 22:59 → N.ICU 10-31 00:07 → N.2E 11-03 10:26
PROVIDERS: ADMIT Family Medicine; ATTEND Family Medicine